=== PATIENT | female | born 1950 | race Caucasian/White ===

== ENCOUNTER 2017-03-02 09:25 | Inpatient (IN) | payer MEDICARE, BC ==
--- NOTE | ~2017-03-02 | DS ---
Discharge Summary [facility] [address] [place]. [address] NAME: JOSEPH CHO : 46 STATUS : DIS IN PAT#: [id number] AGE: 66 ADM/REG DATE : 03/02/17 MR#: [id number] REPORT SERV DATE: 03/13/17 DICTATED BY: MAXX CASTANON DATE: 03/12/17 REPORT STATUS : Draft TRANSCRIBED BY: MODL DATE: 03/12/17 ADMISSION DATE: 03/02/2017 DISCHARGE DATE: 03/12/2017 PRINCIPAL DIAGNOSES: Acute right-sided pneumonia with pleural effusion and acute hypoxemic respiratory failure. SECONDARY DIAGNOSES: History of breast cancer, chronic pain disorder with opioid use. HISTORY OF PRESENT ILLNESS: Please see Dr. Cuevas's dictation on 03/02/20170. HOSPITAL COURSE: Please see Dr. Leong's dictation 03/06/2017. SUBSEQUENT HOSPITAL COURSE: The patient had progressive hypoxemia requiring admission to the [facility] on Vapotherm. She actually maxed out on Vapotherm, and consideration was made about intubation to enhance the possibility of CT imaging and/or bronchoscopy as she had seemed to have failed antibiotic therapy. The pleural effusion was also seen, and efforts were made to do a bedside thoracentesis for diagnosis, however, by day 7 of admission she began to have some diminishment of hypoxemia after perhaps a dose of diuretics and steroids had been instituted. The pleural effusion had gone away for the most part, and she actually began to improve greatly, and antibiotics were discontinued. In between day 7 and day 10 of hospitalization, the patient went from maximum Vapotherm to no oxygen whatsoever. She finished her antibiotics, was given a tapering course of steroids, and she will be following up with Haylie Torres in 1-[address] Suarez in 2 to 4 weeks for the possibility of later imaging and rule out metastatic breast cancer although it should be noted that followup x-rays were negative, and we were not concerned about lymphangitic spread of malignancy at this time. PENNIE/JOSIANE Maxx Castanon M.D. / [id number] CC: Tuan Suarez MD Hisham F. Qutob, MD
--- NOTE | ~2017-03-02 | CN ---
Consultation Report [facility] [address] [place]. [address] NAME: JOSEPH CHO : 48 STATUS : ADM IN PAT#: [id number] AGE: 66 ADM/REG DATE : 03/02/17 MR#: [id number] REPORT SERV DATE: 03/06/17 DICTATED BY: CEDRICK ROBERTO DATE: 03/06/17 REPORT STATUS : Draft TRANSCRIBED BY: MODL DATE: 03/06/17 DATE OF CONSULTATION: 03/06/2017 CHIEF COMPLAINT: Shortness of breath and hypoxemia in a patient with right-sided pneumonia. HISTORY OF PRESENT ILLNESS: Ms. Joseph Cho is a pleasant 66-year-old white female with a past medical history significant for COPD, gastroesophageal reflux disease, and left breast cancer status post resection and chemotherapy, who presents to [facility] with complaints of worsening shortness of breath. It should be noted that Ms. Cho has not been hospitalized recently and has done fairly well as an outpatient. Ms. Cho is not currently followed by a race car driver. She does not require supplemental oxygen. She does take albuterol infrequently. She states that she quit smoking in 1992. Prior to that time, she smoked approximately two packs a day for a period of 30 years. She states that for the last two months, she becomes short of breath, just ambulating around her home. The patient states that she has had some degree of dyspnea over the last few months, which she has attributed to her past smoking history. Approximately seven days ago, she had an episode when she was trying to take some medications and she felt that the pill "got stuck" in her esophagus. She does have a history of dysphagia and esophageal dilatations in the past. She did eventually experience some resolution to the discomfort caused by taking this medication. She does not remember any specific episode of reflux or aspiration afterwards. That being said soon after, she began to experience chills without fever. She began to experience generalized malaise. She did develop some cough and had one or two episodes of scant hemoptysis. The patient states she was actually scheduled to be seen by her primary care physician, but felt so poorly that she asked her to call EMS. She was noted in transit to have an oxygenation of 64% on room air. She was placed on supplemental oxygen with improvement to 96%. When she arrived in the [facility] Emergency Room, she had a systolic blood pressure of 108. She was afebrile. Initial blood work revealed a white blood cell count of 3300. Her BNP was noted to be 138.8. She had an arterial blood gas, which revealed a pH of 7.39 and a PaO2 of 57. A chest x-ray was obtained, which suggests probable pneumonia. Given the degree of her hypoxemia, she did eventually undergo a CTA of the chest, which did not demonstrate pulmonary embolism. That being said, significant infiltrate in the right upper, middle, and lower lobe was demonstrated. Of note, a lucent lesion involving the T11 pedicle and posterior vertebral body on the left measuring 12 x 27 mm was noted. The patient was placed on Rocephin and azithromycin. This was later changed to Zosyn due to the concern of aspiration. She did undergo a bedside swallow eval, which did not demonstrate signs consistent with clear aspiration. Since this time, she has had increasing oxygen requirements, currently now on 12 L. For the aforementioned reason, she has been referred to the Pulmonary Service for further assessment. Currently, Ms. Cho's main pulmonary complaint is shortness of breath. This is worse on exertion and relieved by rest. She is not producing any purulent sputum. She denies any wheezing in her chest. She denies previous pneumonias or aspiration events. She denies any Consultation Report [address] [address] NAME: JOSEPH CHO : 46 STATUS : ADM IN [facility]#: [id number] AGE: 66 ADM/REG DATE : 03/02/17 MR#: [id number] REPORT SERV DATE: 03/06/17 DICTATED BY: CEDRICK ROBERTO DATE: 03/06/17 REPORT STATUS : Draft TRANSCRIBED BY: MODNeri DATE: 03/06/17 recent sick contacts. She has been told in the past that she likely has COPD. 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 She does have known hypertension. She currently denies any murmurs, angina, or palpitations. In regard to constitutional symptoms, she has had no fever or chills. She has had no nausea or vomiting. She has no chest pain today. She denies any abdominal pain or edema. She does confirm previous episodes of orthopnea and dependent edema. PAST MEDICAL HISTORY: 1. Asthma. 2. Left breast cancer status post surgery and chemotherapy. 3. COPD. 4. Hypertension. 5. Gastroesophageal reflux disease. 6. Chronic lower back pain. 7. Ulcerative colitis, previously on immunosuppressant. 8. Urinary incontinence. PAST SURGICAL HISTORY: 1. Hysterectomy. 2. Cervical fusion. 3. Lumbar spine surgeries x2. 4. Incisional hernia repair. 5. Placement of a lumbar spinal stimulator. FAMILY HISTORY: The patient states that her father of COPD. She has four siblings, all with obstructive airway disease. SOCIAL HISTORY: The patient is with her currently at bedside. She has three biologic children who are in good health. She previously worked in food services. 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 TOBACCO/ALCOHOL: As previously mentioned, the patient quit smoking in 1992. Prior to that time, she smoked approximately two packs a day for a period of 30 years. She denies any recent alcohol or illicit drug use. MEDICATIONS: 1. Albuterol. 2. Amlodipine 5 mg. 3. Celebrex 200 mg. 4. Cetirizine 10 mg. 5. Cyclobenzaprine 10 mg. 6. Donepezil 10 mg. Consultation Report [address] [place]. [address] NAME: JOSEPH CHO : 46 STATUS : ADM IN [facility]#: [id number] AGE: 66 ADM/REG DATE : 03/02/17 MR#: [id number] REPORT SERV DATE: 03/06/17 DICTATED BY: CEDRICK ROBERTO DATE: 03/06/17 REPORT STATUS : Draft TRANSCRIBED BY: JOSIANE DATE: 03/06/17 7. Esomeprazole 40 mg. 8. Gabapentin 600 mg. 9. Lopressor 25 mg. 10.Oxybutynin 15 mg. 11.Oxycodone 5 mg. 12.Trazodone 5 mg. ALLERGIES: THE PATIENT HAS A KNOWN ALLERGY TO MORPHINE, ITRACONAZOLE, AND HYDROMORPHONE. REVIEW OF SYSTEMS: A complete review of systems was performed with pertinent positives and negatives contained within the body of the HPI. PHYSICAL EXAMINATION: VITAL SIGNS: Blood pressure is 149/88, heart rate 72, T-max is 98.3, respiratory rate is 18, and SpO2 is 95% on 12 L nasal cannula. GENERAL: The patient is a pleasant, well-nourished/well-developed female who is not currently exhibiting any signs of acute distress. Skin: Skin with appropriate texture and turgor. No rashes, lesions, or ulcers. Nails are clear without cyanosis or clubbing. HEENT: Head: Skull is normocephalic/atraumatic. Facies symmetric. No masses or lesions. Eyes: Sclera anicteric, conjunctiva pink without exudates. Extra ocular movements intact. Pupils are equal, round, reactive to light. Ears: Auricles and tragus without pain to palpation. Hearing is grossly intact. Nose: Bilateral nasal patency. Sinuses without tenderness upon palpation. Throat: Dentition. Lips, oral mucosa, tongue, palate, and pharynx pink and moist without lesions. Uvula rises equally on phonation. Tongue midline without deviation. NECK: Neck supple. Trachea midline. No cervical lymphadenopathy appreciated. THORAX/LUNGS: Very diminished breath sounds in the lower lung sawyer with a few inspiratory crackles. CARDIOVASCULAR: Regular rate and rhythm. No murmurs, rubs, or gallops. Anterior chest without thrills, heaves, or lifts. ABDOMEN: Soft. Non-distended, non-tender. Active bowel sounds in all four quadrants. No hepatosplenomegaly noted. PERIPHERAL VASCULAR: No edema. No varicosities, stasis changes, open sores, ulcerations, or phlebitis. 2+ pulses in radial and dorsalis pedis. MUSCULOSKELETAL: Full AROM and PROM in all joints. No evidence of erythema, deformity, or crepitus. NEUROLOGIC: CN II - XII grossly intact. Good muscle bulk and tone bilaterally. Strength 5/5 throughout. PSYCHIATRIC: Patient demonstrates good judgment and insight. Pt is A&O x 3. ACCESSORY DATA: Reveals a creatinine of 0.6, mag is 1.9. Arterial blood gas on 50% FiO2 reveals a pH of 7.45, PaCO2 of 39, PaO2 of 50, and a bicarb of 26.6. White blood cell count is 4800. Hemoglobin and hematocrit are 10.5 and 32.4. Blood cultures have no growth to Consultation Report [address] [place]. [address] NAME: JOSEPH CHO MISTY : 48 STATUS : ADM IN PAT#: [id number] AGE: 66 ADM/REG DATE : 03/02/17 MR#: [id number] REPORT SERV DATE: 03/06/17 DICTATED BY: CEDRICK ROBERTO DATE: 03/06/17 REPORT STATUS : Draft TRANSCRIBED BY: JOSIANE DATE: 03/06/17 date. Sputum is growing yeast. CTA of the chest reveals no PE. There are signs consistent with right-sided pneumonia. There is a moderate hiatal hernia as well as a lesion noted on T11. Echocardiogram is pending. IMPRESSION: 1. Acute hypoxemic respiratory failure. 2. Increasing right-sided pulmonary infiltrate suggestive of pneumonia. 3. Bilateral pleural effusions. 4. Chronic obstructive pulmonary disease. 5. History of breast cancer status post resection and chemo. 6. T11 lesion. 7. Dysphagia. 8. Gastroesophageal reflux disease. 9. Ulcerative colitis, previously on immunotherapy. PLAN: 1. At this time, we will write for Vapotherm should her oxygenation status worsen. We will check a BNP to surveil for volume overload. We will also perform a bedside ultrasound to assess the size of her pleural effusions. 2. In regard to the patient's probable pneumonia, we will check a procalcitonin to help guide further antibiotic therapy. Unfortunately, she is not clinically stable enough to pursue bronchoscopy for more definitive culture information. It may be reasonable to transiently increase her antibiotic coverage. We will likely add vancomycin to her regimen. 3. In regard to the patient's bilateral pleural effusions, again we will check a BNP as well as follow her echocardiogram with further recommendations. She may possibly benefit for diagnostic and therapeutic thoracentesis. 4. In regard to the patient's COPD, we will place her on a full armamentarium of nebulized medications. The aforementioned impression and plan have been discussed with Dr. Suarez, who will follow further recommendations. We thank you for this consult and look forward to participating in the care of . Joseph Cho. GBS/MODL Cedrick Roberto PA-C / [id number] Consultation Report [address] [place]. [address] NAME: JOSEPH CHO : 46 STATUS : ADM IN PAT#: [id number] AGE: 66 ADM/REG DATE : 03/02/17 MR#: [id number] REPORT SERV DATE: 03/06/17 DICTATED BY: CEDRICK ROBERTO DATE: 03/06/17 REPORT STATUS : Draft TRANSCRIBED BY: MODL DATE: 03/06/17 CC: Praveen Leong MD
--- NOTE | ~2017-03-02 | IDS ---
Interim Discharge Summary [facility] [address] [place]. [address] NAME: JOSEPH CHO : 46 STATUS : ADM IN [facility]#: [id number] AGE: 66 ADM/REG DATE : 03/02/17 MR#: [id number] REPORT SERV DATE: 03/07/17 DICTATED BY: PRAVEEN HAYS DATE: 03/06/17 REPORT STATUS : Draft TRANSCRIBED BY: MODNeri DATE: 03/06/17 ADMISSION DATE: 03/02/2017 DISCHARGE DATE: Date of discharge is pending. CONSULTATION: Pulmonology. REASON FOR CONSULTATION: Worsening pulmonary consolidation and infiltrate on repeat chest x- ray and worsening hypoxemia. RECOMMENDATIONS: By Pulmonary; the patient transferred to [facility] on 03/06/2017. The patient to have a repeat CT scan of the chest as well as repeat ultrasound for possible thoracentesis. CURRENT DIAGNOSES: 1. Right-sided pneumonia. 2. Acute hypoxic respiratory failure. 3. Bilateral pleural effusion. 4. Mild cognitive disorder. 5. Chronic pain syndrome. 6. Chronic back pain. 7. History of chronic neck pain. 8. History of cervical spine surgery. 9. History of chronic obstructive pulmonary disease/emphysema. 10.History of breast cancer. 11.Current condition stable. HISTORY OF PRESENT ILLNESS: For detailed HPI, please make reference to Dr. Tl Cuevas dictation on 03/02/2017. In brief, this is a 66-year-old female with medical history of COPD/emphysema, who presented to the hospital after an episode of aspiration of a pill three days prior to presentation. The patient reported that she developed worsening cough with production of hemoptysis. On arrival in the ER, the patient was found to have severe hypoxemia, PaO2 in the 50s, was placed on 10 L, PaO2 of 7. The patient was started on high flow oxygen at about 10 L. A chest x-ray was done that shows dense consolidation in the right lung. The patient's white blood cell count on initial presentation was noted to be 3300, however, repeat shows the patient's WBC shown to be 3300. Given patient's constellation of symptoms, a diagnosis of acute hypoxic respiratory failure secondary to right-sided pneumonia was made. The patient was admitted to the Hospitalist Service. HOSPITAL COURSE: Acute respiratory failure secondary to right-sided pneumonia. The patient's WBC trended up from 3300 to 14,000. The patient's initial IV antibiotics with ceftriaxone and azithromycin were switched to IV Zosyn. The patient's white blood cell currently trended up from 14,000 to 17,000. However, the patient continued to have Interim Discharge Summary [place] [address] [place]. [address] NAME: JOSEPH CHO : 46 STATUS : ADM IN [facility]#: [id number] AGE: 66 ADM/REG DATE : 03/02/17 MR#: [id number] REPORT SERV DATE: 03/07/17 DICTATED BY: PRAVEEN HAYS DATE: 03/06/17 REPORT STATUS : Draft TRANSCRIBED BY: JOSIANE DATE: 03/06/17 worsening hypoxemia and continued to have worsening cough. The sputum culture was obtained which grew normal brittny including yeast. The patient's repeat chest x-ray shows worsen consolidation, worsening right pleural effusion. Pulmonology was consulted. Recommended patient to be transferred to the [facility] and have a possible thoracentesis as well as a possible repeat CT scan. The patient is currently stable in [facility], on Vapotherm. The patient will likely have an ultrasound-guided thoracentesis if okay with Pulmonology. RAADO/JOSIANE Praveen Hays MD / [id number] CC: Praveen Hays MD
--- NOTE | ~2017-03-02 | HP ---
History And Physical [place] [id number] [facility] [place] [place]. [address] NAME: JOSEPH CHO : 46 STATUS : ADM IN [facility]#: [id number] AGE: 66 ADM/REG DATE : 03/02/17 MR#: [id number] REPORT SERV DATE: 03/02/17 DICTATED BY: NINA MACIAS DATE: 03/02/17 REPORT STATUS : Draft TRANSCRIBED BY: MODL DATE: 03/02/17 DATE OF ADMISSION: 03/02/2017 ATTENDING PHYSICIAN: Dr. Manzano. REASON FOR ADMISSION: Pneumonia right side and hypoxemia. HISTORY OF PRESENT ILLNESS: This is a 66-year-old white female, who has had some dyspnea on exertion for several months. She has been coughing this morning, slight amount of mucus but mostly blood. She has had fever and chills this morning and chest x-ray showed evidence of right-sided pneumonia. CT scan of the chest confirms this without evidence of pulmonary embolism. She thought she may be having some COPD as she has been having some hypoxemia and this has been checked out at home but she is not on any oxygen. She sees Dr. Haylie Torres, who treats her high blood pressure. PAST MEDICAL HISTORY: She does have a history of breast cancer about 10 years ago, was treated by Dr. Susana Martinez with an abbreviated dose of chemotherapy. She has had some senile dementia since that time but does not believe it is Alzheimer's disease. She does have chronic pain from low back pain. She is followed by Dr. Cuate Santos and is on the following medications: Albuterol two puffs q.i.d.; amlodipine 5 mg p.o. daily; vitamin B tablets 1 a day; biotin for hard nails; Celebrex 200 mg p.o. q.a.m.; Zyrtec 10 mg p.o. daily; vitamin D3 a 1000 units p.o. daily; Flexeril 10 mg p.o. t.i.d.; diclofenac gel 1 applicator 3 times a day p.r.n.; Aricept 10 mg at bedtime; Nexium 40 mg p.o. daily; gabapentin 600 mg p.o. q.a.m. and 1200 mg at bedtime; Linzess 145 mcg p.o. daily; magnesium chloride 535 mg p.o. 2 every morning; Mag Delay; metoprolol 25 mg 1 p.o. b.i.d.; vitamin with minerals; Mycolog 1 application 4 times a day for facial rash as needed; Ditropan XL 15 mg p.o. daily; Roxicodone 10 mg p.o. three times a day as needed; trazodone 50 mg p.o. at bedtime; vitamin C 1 every morning; Nizoral shampoo as needed for scalp dandruff; and Effexor XR 150 mg p.o. daily. ALLERGIES: HER ALLERGIES INCLUDE THE FOLLOWING: MORPHINE; SPORANOX; DILAUDID; AND PERCOCET WHICH CAUSES ITCHING THOUGH SHE IS ON THE ROXICODONE, THEREFORE I DOUBT THIS IS A PROBLEM. SOCIAL HISTORY: She is . Lives with her . She grew up in [place], [place] and moved to [place], [place] to raise her children. She does not smoke or drink. She attends the [employer]. FAMILY HISTORY: Her father at age 56 of COPD. Mother at age 80 after a hip fracture. She had 4 brothers and 4 sisters, all of whom are . She is the baby of the family. REVIEW OF SYSTEMS: History And Physical [address] [address] NAME: JOSEPH CHO : 46 STATUS : ADM IN [facility]#: [id number] AGE: 66 ADM/REG DATE : 03/02/17 MR#: [id number] REPORT SERV DATE: 03/02/17 DICTATED BY: NINA MACIAS DATE: 03/02/17 REPORT STATUS : Draft TRANSCRIBED BY: MODNeri DATE: 03/02/17 She has told she had some emphysema in the emergency room at [facility] in the past. She has had some hypoxemia off and on. She has had no chest pain. No fever. No swelling of the lower extremities. She does have an irregular heartbeat and she sees Dr. Rip Ospina for this. She had a breast cancer, chemotherapy, no evidence of disease in about 10 to 15 years. She has had no abdominal pain. No melena, hematemesis, fits, seizures, or convulsions. She does have urinary incontinence. She is gaining weight. The remainder of the review of systems is negative. PHYSICAL EXAMINATION: GENERAL: White female, moderately obese, in no acute distress. VITAL SIGNS: Her blood pressure was 100/60 with a heart rate of 70, her respiratory rate was 25, afebrile. HEENT: EOMI. Sclerae clear. Conjunctivae pink. NECK: No bruit without any JVD. CHEST: Rales on the right side anterior and laterally. Chest wall shows old Port-A-Cath scar on the right side. HEART: Regular S1, S2 without any murmur, gallop, or click. BREASTS: On the left side has a prosthesis. ABDOMEN: Soft, obese, nontender. Bowel sounds positive. No HSM. EXTREMITIES: Have no edema. Distal pulses are intact at the dorsalis pedis and posterior tibial. NEUROLOGIC: She withdraws to plantar stimulation. Graphics Specialist is equal and symmetric bilaterally. Coordination intact. She has no tremor. She is symmetrically equal neurologically bilaterally. LYMPHATICS: There is no adenopathy palpable. LABORATORY DATA: 1. Arterial blood gas, 7.39, 37, and 57, was drawn on 40% FiO2. The sodium is 141, potassium 4.2, creatinine 1.4, 1.15; BUN 25. Her glucose was 100. The albumin is 3.3. Liver tests are normal. Troponin less than 0.04. The BNP was 138. CTA of the chest showed right-sided pneumonia. Diffuse mixed density throughout the right upper lobe and lower lobe and middle lobe. 2. She has a moderate hiatal hernia and a lucent lesion 12 x 27 mm at T11 which is well- circumscribed, this could be a metastatic lesion though could be a benign bone cyst as well. 3. Portable chest x-ray shows dense consolidation in the right lung. The PT showed an INR of 1.1 with a PTT of 27, and her CBC showed a white count of 3.3000, hemoglobin 13.6, hematocrit 42.4, and platelets were 223,000. ASSESSMENT: 1. Right-sided pneumonia, right upper lobe, right lower lobe. 2. Hypoxemia with oxygen. We will try to maintain 90% with 5 L that she is on at this time. 3. Dementia of the Alzheimer's type on Aricept though this may have occurred after the History And Physical [address] [place]. 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 4. Hypertension on multiple medications, now with hypotension. 5. Possible COPD told by the emergency room though I suspect overlooking a hyperlucent lung on the x-ray. 6. Chronic pain followed by Dr. Cuate Santos. 7. Low back pain. 8. History of breast cancer, followed by Dr. Susana Martinez with Port-A-Cath being removed from the right chest. 9. History of hypertension. 10.Staggering recently and falling on multiple occasions according to the with evidence of postural hypotension. She did have significant postural hypotension during chemotherapy for her breast cancer. 11.12 x 27 mm lesion in the T11 area, benign versus metastatic. Consider followup x-rays. PLAN: We will start Rocephin and Zithromax for community-acquired pneumonia. Continued supplemental oxygen, aerosol treatments. Her baseline oxygen level is questionable, and we will need to consider supplemental oxygen at home. DB/JOSIANE Nina Macias M.D. / [id number] CC: MD Haylie Campoverde II, MD Sylvia Krueger, M.D. Calvin Bell, M.D. John Everett Blake III, M.D.
[~2017-03-02 09:25] MED LIST: ADVAIR250 INH; AMITIZA8 MCG PO; ASACOL PO; CELEBREX2 PO; CELEXA20 PO; DETROLLA4 PO; DIL4TAB PO; FEMARA PO; FEMARA2.5 MG OR; HYDROCHLOROT25 MG PO; LORTAB10 PO; LUNESTA3 MG PO; METHOC750B PO; NEUR800 PO; NEXIUM40 PO; PROCTO PAK EX; VOLTAREN1 % TOP
[2017-03-02 10:02] LABS: BASOPHILS 0 %; EOSINOPHILS 0 %; HEMATOCRIT 42.4 % (36.0-48.0); HEMOGLOBIN 13.8 g/dL (12.0-16.0); LYMPHOCYTES 10.4 %; LYMPHOCYTES ABSOLUTE 0.34 10/3/uL (0.67-4.30); MEAN CORPUS HGB CONC 32.5 g/dL (32.0-36.0); MEAN CORPUSCULAR VOLUME 92.2 fL (80-100); MEAN PLATELET VOLUME 10.4 fL (9.2-13.0); NEUTROPHILS 86.6 %; NEUTROPHILS ABSOLUTE 2.84 10/3/uL (2.02-8.40); PLATELET COUNT 223 10/3/uL (150-400); RBC DISTRIBUTION WIDTH 13.4 % (12.0-16.0)
[2017-03-02 10:09] LABS: ER CBC TAT 0 Hrs 11 Mins; MANUAL DIFF NO %; WHITE BLOOD CELLS 3.3 10/3/uL (4.5-10.5)
[2017-03-02 10:10] LABS: INTERNATIONAL NORMAL RATI 1.1 UNITS (-); PARTIAL THROMBO TIME 27.8 SEC (22.5-37.2); PROTIME (NOT ORD) 14.4 SEC (12.0-14.5)
[2017-03-02 10:16] LABS: ALLENS TEST Pos; BE (BASE EXCESS) -1.9 MEQ/L (0 +/- 2.5); CARBOXYHEMOGLOBIN 1.6 % (0-3); DEVICE NC; HCO3 (ACTUAL BICARBONATE) 22.7 MEQ/L (23-27); HEMOBLOGIN CONTENT 13.8 G/DL (12-16); INSTRUMENT SERIAL # 8087; METHEMOGLOBIN 0.3 % (0-3); O2 CONTENT 16.9 VOL% (18-24); PCO2 (CO2 TENSION) 39 MMHG (35-45); PO2 (O2 TENSION) 57 MMHG (79-93); SAMPLE Arterial; pH 7.39 (7.37-7.43)
[2017-03-02 10:19] LABS: ALBUMIN 3.3 G/DL (3.5-5.0); ALKALINE PHOSPHATASE 92 U/L (45-117); CALCIUM, SERUM 8.7 MG/DL (8.5-10.4); CHLORIDE, SERUM 107 MMOL/L (96-112); CO2 (CARBON DIOXIDE) 28 MMOL/L (24-34); CREATININE 1.15 MG/DL (0.55-1.02); GFR AFRICAN AMERICAN 57 ML/MIN (>=60); GFR NON AFRICAN AMERICAN 49 ML/MIN (>=60); GLOBULIN 3.3 G/DL (2.5-4.1); GLUCOSE, SERUM 100 MG/DL (60-99); POTASSIUM, SERUM 4.2 MMOL/L (3.5-5.3); SGOT(AST) 9 U/L (5-40); SGPT(ALT) 22 U/L (5-65); SODIUM, SERUM 141 MMOL/L (135-148); TOTAL BILIRUBIN 0.7 MG/DL (0-1.2); TOTAL PROTEIN 6.6 G/DL (6.0-8.5); TROPONIN I 0.04 NG/ML (<0.05)
[2017-03-02 10:20] LABS: BUN (BLOOD UREA NITROGEN) 25 MG/DL (6-23)
[2017-03-02] MEDS ORDERED: VITAMIN C PO (11:12)
[2017-03-02] MEDS ORDERED: VITAMIN D31000 UNIT PO (11:12)
[2017-03-02] MEDS ORDERED: VITAMIN B PO (11:13)
[2017-03-02] MEDS ORDERED: MULTIVIT/MIN PO (11:13)
[2017-03-02] MEDS ORDERED: NEUR600 PO ×2 (11:13→11:14)
[2017-03-02] MEDS ORDERED: LOP25 PO (11:14)
[2017-03-02] MEDS ORDERED: NEXIUM40 PO (11:14)
[2017-03-02] MEDS ORDERED: FLEX PO (11:15)
[2017-03-02] MEDS ORDERED: EFFEXOR XR150 MG PO (11:15)
[2017-03-02] MEDS ORDERED: ARICEPT10 PO (11:15)
[2017-03-02] MEDS ORDERED: CELEBREX2 PO (11:15)
[2017-03-02] MEDS ORDERED: TRAZ50 PO (11:16)
[2017-03-02] MEDS ORDERED: DITRO5 PO (11:16)
[2017-03-02] MEDS ORDERED: OXYCOD PO (11:17)
[2017-03-02] MEDS ORDERED: NORV5 PO (11:17)
[2017-03-02] MEDS ORDERED: MYCOLOG II CREA15 GM TOP (11:19)
[2017-03-02] MEDS ORDERED: ZYRTEC ALLGY10 MG PO (11:21)
[2017-03-02] MEDS ORDERED: VOLTAREN1 % TOP (11:24)
[2017-03-02] MEDS ORDERED: PROAIRRESP INH (11:24)
[2017-03-02] MEDS ORDERED: MAG-DELAY PO (11:25)
[2017-03-02] MEDS ORDERED: HARD NAILS PO (11:25)
[2017-03-02] MEDS ORDERED: LINZESS 145 M145 MCG PO (11:34)
[2017-03-02] MEDS ORDERED: NIZORAL SHAMPOO TOP (11:35)
[2017-03-02 19:46] LABS: INFLUENZA A SCREEN NEGATIVE (NEGATIVE); INFLUENZA B SCREEN NEGATIVE (NEGATIVE)
[2017-03-03 05:42] LABS: BASOPHILS 0.1 %; BASOPHILS ABSOLUTE 0.01 10/3/uL (0.0-0.16); EOSINOPHILS 0 %; HEMOGLOBIN 11.2 g/dL (12.0-16.0); IMMATURE GRANULOCYTES ABSOLUTE 0.28 10/3/uL (0.0-0.11); LYMPHOCYTES 4.1 %; LYMPHOCYTES ABSOLUTE 0.58 10/3/uL (0.67-4.30); MEAN CORPUS HGB CONC 32.7 g/dL (32.0-36.0); MEAN CORPUSCULAR HEMOGLOB 29.9 pg (26.0-34.0); MEAN CORPUSCULAR VOLUME 91.7 fL (80-100); MEAN PLATELET VOLUME 10.7 fL (9.2-13.0); MONOCYTES 4.1 %; MONOCYTES ABSOLUTE 0.58 10/3/uL (0.21-1.20); NEUTROPHILS 89.7 %; NEUTROPHILS ABSOLUTE 12.63 10/3/uL (2.02-8.40); PLATELET COUNT 166 10/3/uL (150-400); RBC DISTRIBUTION WIDTH 13.2 % (12.0-16.0); RED CELL COUNT 3.74 10/6/uL (4.0-5.6)
[2017-03-03 05:43] LABS: HEMATOCRIT 34.3 % (36.0-48.0); MANUAL DIFF NO %; WHITE BLOOD CELLS 14.1 10/3/uL (4.5-10.5)
[2017-03-03 05:59] LABS: CHLORIDE, SERUM 106 MMOL/L (96-112); CO2 (CARBON DIOXIDE) 25 MMOL/L (24-34); CREATININE 0.88 MG/DL (0.55-1.02); GFR AFRICAN AMERICAN 78 ML/MIN (>=60); GFR NON AFRICAN AMERICAN 68 ML/MIN (>=60); PHOSPHORUS, SERUM 2.2 MG/DL (2.5-4.5); SODIUM, SERUM 139 MMOL/L (135-148)
[2017-03-03 06:00] LABS: BUN (BLOOD UREA NITROGEN) 20 MG/DL (6-23); GLUCOSE, SERUM 178 MG/DL (60-99)
[2017-03-03 13:30] LABS: BE (BASE EXCESS) -0.2 MEQ/L (0 +/- 2.5); CARBOXYHEMOGLOBIN 0.3 % (0-3); HCO3 (ACTUAL BICARBONATE) 24.4 MEQ/L (23-27); HEMOBLOGIN CONTENT 11.6 G/DL (12-16); INSTRUMENT SERIAL # 35151; METHEMOGLOBIN 0.6 % (0-3); O2 CONTENT 15.5 VOL% (18-24); OPERATOR ID 35798; PCO2 (CO2 TENSION) 40 MMHG (35-45); PO2 (O2 TENSION) 77 MMHG (79-93); SAMPLE Arterial; pH 7.41 (7.37-7.43)
[2017-03-03 13:31] LABS: ALLENS TEST Pos; DEVICE HFNC
[2017-03-04 06:26] LABS: BASOPHILS 0.1 %; BASOPHILS ABSOLUTE 0.01 10/3/uL (0.0-0.16); EOSINOPHILS 0.1 %; EOSINOPHILS ABSOLUTE 0.01 10/3/uL (0.0-0.53); HEMATOCRIT 31.2 % (36.0-48.0); IMMATURE GRANULOCYTES 0.8 %; LYMPHOCYTES 8.5 %; LYMPHOCYTES ABSOLUTE 1.06 10/3/uL (0.67-4.30); MEAN CORPUS HGB CONC 32.1 g/dL (32.0-36.0); MEAN CORPUSCULAR HEMOGLOB 29.8 pg (26.0-34.0); MEAN CORPUSCULAR VOLUME 92.9 fL (80-100); MEAN PLATELET VOLUME 10.9 fL (9.2-13.0); MONOCYTES 3.6 %; MONOCYTES ABSOLUTE 0.45 10/3/uL (0.21-1.20); NEUTROPHILS 86.9 %; PLATELET COUNT 167 10/3/uL (150-400); RBC DISTRIBUTION WIDTH 13.7 % (12.0-16.0); RED CELL COUNT 3.36 10/6/uL (4.0-5.6); WHITE BLOOD CELLS 12.5 10/3/uL (4.5-10.5)
[2017-03-04 06:29] LABS: MANUAL DIFF NO %
[2017-03-04 06:49] LABS: BUN (BLOOD UREA NITROGEN) 17 MG/DL (6-23); CHLORIDE, SERUM 104 MMOL/L (96-112); CO2 (CARBON DIOXIDE) 28 MMOL/L (24-34); CREATININE 0.85 MG/DL (0.55-1.02); GFR AFRICAN AMERICAN 82 ML/MIN (>=60); GFR NON AFRICAN AMERICAN 70 ML/MIN (>=60); GLUCOSE, SERUM 150 MG/DL (60-99); POTASSIUM, SERUM 4.7 MMOL/L (3.5-5.3); SODIUM, SERUM 139 MMOL/L (135-148)
[2017-03-04 06:50] LABS: ALBUMIN 2.5 G/DL (3.5-5.0); PHOSPHORUS, SERUM 1.5 MG/DL (2.5-4.5)
[2017-03-04 16:26] LABS: BASOPHILS 0.2 %; BASOPHILS ABSOLUTE 0.02 10/3/uL (0.0-0.16); EOSINOPHILS 0.8 %; HEMATOCRIT 33.4 % (36.0-48.0); HEMOGLOBIN 10.7 g/dL (12.0-16.0); IMMATURE GRANULOCYTES 0.9 %; IMMATURE GRANULOCYTES ABSOLUTE 0.12 10/3/uL (0.0-0.11); LYMPHOCYTES 9.7 %; LYMPHOCYTES ABSOLUTE 1.25 10/3/uL (0.67-4.30); MANUAL DIFF NO %; MEAN CORPUSCULAR VOLUME 93.6 fL (80-100); MEAN PLATELET VOLUME 10.7 fL (9.2-13.0); MONOCYTES 4.4 %; MONOCYTES ABSOLUTE 0.56 10/3/uL (0.21-1.20); NEUTROPHILS ABSOLUTE 10.78 10/3/uL (2.02-8.40); PLATELET COUNT 171 10/3/uL (150-400); RBC DISTRIBUTION WIDTH 13.6 % (12.0-16.0); RED CELL COUNT 3.57 10/6/uL (4.0-5.6); WHITE BLOOD CELLS 12.8 10/3/uL (4.5-10.5)
[2017-03-04 16:45] LABS: ALBUMIN 2.8 G/DL (3.5-5.0); BUN (BLOOD UREA NITROGEN) 14 MG/DL (6-23); CALCIUM, SERUM 8.8 MG/DL (8.5-10.4); CHLORIDE, SERUM 103 MMOL/L (96-112); CO2 (CARBON DIOXIDE) 26 MMOL/L (24-34); CREATININE 0.71 MG/DL (0.55-1.02); GFR AFRICAN AMERICAN 101 ML/MIN (>=60); GFR NON AFRICAN AMERICAN 88 ML/MIN (>=60); GLUCOSE, SERUM 124 MG/DL (60-99); PHOSPHORUS, SERUM 1.6 MG/DL (2.5-4.5); SODIUM, SERUM 139 MMOL/L (135-148)
[2017-03-04 16:48] LABS: POTASSIUM, SERUM 3.7 MMOL/L (3.5-5.3)
[2017-03-05 09:00] LABS: BASOPHILS 0.5 %; BASOPHILS ABSOLUTE 0.04 10/3/uL (0.0-0.16); EOSINOPHILS 2.6 %; HEMATOCRIT 34.9 % (36.0-48.0); HEMOGLOBIN 11.4 g/dL (12.0-16.0); IMMATURE GRANULOCYTES 0.3 %; IMMATURE GRANULOCYTES ABSOLUTE 0.02 10/3/uL (0.0-0.11); LYMPHOCYTES 14.7 %; LYMPHOCYTES ABSOLUTE 1.11 10/3/uL (0.67-4.30); MANUAL DIFF NO %; MEAN CORPUS HGB CONC 32.7 g/dL (32.0-36.0); MEAN CORPUSCULAR VOLUME 91.8 fL (80-100); MONOCYTES 5.3 %; NEUTROPHILS 76.6 %; NEUTROPHILS ABSOLUTE 5.79 10/3/uL (2.02-8.40); PLATELET COUNT 192 10/3/uL (150-400); RBC DISTRIBUTION WIDTH 13.6 % (12.0-16.0); WHITE BLOOD CELLS 7.6 10/3/uL (4.5-10.5)
[2017-03-06 06:18] LABS: BASOPHILS 0.6 %; BASOPHILS ABSOLUTE 0.03 10/3/uL (0.0-0.16); EOSINOPHILS 4.6 %; EOSINOPHILS ABSOLUTE 0.22 10/3/uL (0.0-0.53); HEMATOCRIT 32.4 % (36.0-48.0); HEMOGLOBIN 10.5 g/dL (12.0-16.0); IMMATURE GRANULOCYTES 0.4 %; IMMATURE GRANULOCYTES ABSOLUTE 0.02 10/3/uL (0.0-0.11); LYMPHOCYTES 26.6 %; LYMPHOCYTES ABSOLUTE 1.27 10/3/uL (0.67-4.30); MEAN CORPUS HGB CONC 32.4 g/dL (32.0-36.0); MEAN CORPUSCULAR HEMOGLOB 29.6 pg (26.0-34.0); MEAN CORPUSCULAR VOLUME 91.3 fL (80-100); MEAN PLATELET VOLUME 10.5 fL (9.2-13.0); MONOCYTES 9.4 %; MONOCYTES ABSOLUTE 0.45 10/3/uL (0.21-1.20); NEUTROPHILS 58.4 %; NEUTROPHILS ABSOLUTE 2.78 10/3/uL (2.02-8.40); PLATELET COUNT 201 10/3/uL (150-400); RBC DISTRIBUTION WIDTH 13.3 % (12.0-16.0); RED CELL COUNT 3.55 10/6/uL (4.0-5.6); WHITE BLOOD CELLS 4.8 10/3/uL (4.5-10.5)
[2017-03-06 06:20] LABS: MANUAL DIFF NO %
[2017-03-06 06:35] LABS: CALCIUM, SERUM 9.2 MG/DL (8.5-10.4); CHLORIDE, SERUM 104 MMOL/L (96-112); CO2 (CARBON DIOXIDE) 30 MMOL/L (24-34); GFR AFRICAN AMERICAN 109 ML/MIN (>=60); GFR NON AFRICAN AMERICAN 94 ML/MIN (>=60); POTASSIUM, SERUM 3.6 MMOL/L (3.5-5.3); SODIUM, SERUM 141 MMOL/L (135-148)
[2017-03-06 06:36] LABS: BUN (BLOOD UREA NITROGEN) 10 MG/DL (6-23); GLUCOSE, SERUM 89 MG/DL (60-99); PHOSPHORUS, SERUM 3.5 MG/DL (2.5-4.5)
[2017-03-06 10:21] LABS: BE (BASE EXCESS) 2.5 MEQ/L (0 +/- 2.5); CARBOXYHEMOGLOBIN 0.2 % (0-3); DEVICE HFNC; HCO3 (ACTUAL BICARBONATE) 26.6 MEQ/L (23-27); HEMOBLOGIN CONTENT 12.4 G/DL (12-16); INSTRUMENT SERIAL # 35151; METHEMOGLOBIN 0.6 % (0-3); O2 CONTENT 14.8 VOL% (18-24); PCO2 (CO2 TENSION) 39 MMHG (35-45); PO2 (O2 TENSION) 50 MMHG (79-93); SAMPLE Arterial; pH 7.45 (7.37-7.43)
[2017-03-06 16:31] LABS: PROCALCITONIN 2.44 ng/mL (<0.5)
[2017-03-07 04:40] LABS: BASOPHILS ABSOLUTE 0.05 10/3/uL (0.0-0.16); EOSINOPHILS 4.6 %; EOSINOPHILS ABSOLUTE 0.24 10/3/uL (0.0-0.53); HEMOGLOBIN 10.8 g/dL (12.0-16.0); IMMATURE GRANULOCYTES 0.4 %; IMMATURE GRANULOCYTES ABSOLUTE 0.02 10/3/uL (0.0-0.11); LYMPHOCYTES 31.4 %; LYMPHOCYTES ABSOLUTE 1.63 10/3/uL (0.67-4.30); MANUAL DIFF NO %; MEAN CORPUS HGB CONC 32.7 g/dL (32.0-36.0); MEAN CORPUSCULAR HEMOGLOB 29.8 pg (26.0-34.0); MEAN CORPUSCULAR VOLUME 91.2 fL (80-100); MEAN PLATELET VOLUME 10.4 fL (9.2-13.0); MONOCYTES 11.8 %; MONOCYTES ABSOLUTE 0.61 10/3/uL (0.21-1.20); NEUTROPHILS 50.8 %; NEUTROPHILS ABSOLUTE 2.64 10/3/uL (2.02-8.40); PLATELET COUNT 218 10/3/uL (150-400); RBC DISTRIBUTION WIDTH 13.3 % (12.0-16.0); RED CELL COUNT 3.62 10/6/uL (4.0-5.6); WHITE BLOOD CELLS 5.2 10/3/uL (4.5-10.5)
[2017-03-07 04:41] LABS: BUN (BLOOD UREA NITROGEN) 9 MG/DL (6-23); CALCIUM, SERUM 8.7 MG/DL (8.5-10.4); CHLORIDE, SERUM 107 MMOL/L (96-112); CO2 (CARBON DIOXIDE) 29 MMOL/L (24-34); CREATININE 0.59 MG/DL (0.55-1.02); GFR AFRICAN AMERICAN 109 ML/MIN (>=60); GFR NON AFRICAN AMERICAN 94 ML/MIN (>=60); PHOSPHORUS, SERUM 3.6 MG/DL (2.5-4.5); POTASSIUM, SERUM 3.9 MMOL/L (3.5-5.3); SODIUM, SERUM 144 MMOL/L (135-148)
[2017-03-07 04:42] LABS: ALBUMIN 2.2 G/DL (3.5-5.0); GLUCOSE, SERUM 108 MG/DL (60-99)
[2017-03-08 03:53] LABS: BASOPHILS ABSOLUTE 0.07 10/3/uL (0.0-0.16); EOSINOPHILS 4.2 %; EOSINOPHILS ABSOLUTE 0.28 10/3/uL (0.0-0.53); HEMATOCRIT 33.7 % (36.0-48.0); HEMOGLOBIN 11.2 g/dL (12.0-16.0); IMMATURE GRANULOCYTES 0.6 %; IMMATURE GRANULOCYTES ABSOLUTE 0.04 10/3/uL (0.0-0.11); LYMPHOCYTES 25.8 %; LYMPHOCYTES ABSOLUTE 1.73 10/3/uL (0.67-4.30); MEAN CORPUS HGB CONC 33.2 g/dL (32.0-36.0); MEAN CORPUSCULAR HEMOGLOB 29.9 pg (26.0-34.0); MEAN CORPUSCULAR VOLUME 90.1 fL (80-100); MONOCYTES 11.5 %; MONOCYTES ABSOLUTE 0.77 10/3/uL (0.21-1.20); NEUTROPHILS 56.9 %; NEUTROPHILS ABSOLUTE 3.82 10/3/uL (2.02-8.40); PLATELET COUNT 240 10/3/uL (150-400); RBC DISTRIBUTION WIDTH 13.2 % (12.0-16.0); RED CELL COUNT 3.74 10/6/uL (4.0-5.6); WHITE BLOOD CELLS 6.7 10/3/uL (4.5-10.5)
[2017-03-08 03:55] LABS: MANUAL DIFF NO %
[2017-03-08 04:07] LABS: BUN (BLOOD UREA NITROGEN) 8 MG/DL (6-23); CALCIUM, SERUM 8.8 MG/DL (8.5-10.4); CHLORIDE, SERUM 103 MMOL/L (96-112); CO2 (CARBON DIOXIDE) 29 MMOL/L (24-34); CREATININE 0.58 MG/DL (0.55-1.02); GFR AFRICAN AMERICAN 110 ML/MIN (>=60); GFR NON AFRICAN AMERICAN 95 ML/MIN (>=60); GLUCOSE, SERUM 104 MG/DL (60-99); PHOSPHORUS, SERUM 3.4 MG/DL (2.5-4.5); POTASSIUM, SERUM 3.7 MMOL/L (3.5-5.3); SODIUM, SERUM 138 MMOL/L (135-148)
[2017-03-09 05:27] LABS: BASOPHILS 0.3 %; BASOPHILS ABSOLUTE 0.02 10/3/uL (0.0-0.16); EOSINOPHILS 0 %; HEMATOCRIT 35.1 % (36.0-48.0); HEMOGLOBIN 11.5 g/dL (12.0-16.0); IMMATURE GRANULOCYTES 0.9 %; IMMATURE GRANULOCYTES ABSOLUTE 0.06 10/3/uL (0.0-0.11); LYMPHOCYTES 17.3 %; LYMPHOCYTES ABSOLUTE 1.12 10/3/uL (0.67-4.30); MEAN CORPUS HGB CONC 32.8 g/dL (32.0-36.0); MEAN CORPUSCULAR HEMOGLOB 29.4 pg (26.0-34.0); MEAN CORPUSCULAR VOLUME 89.8 fL (80-100); MEAN PLATELET VOLUME 10.3 fL (9.2-13.0); MONOCYTES 3.9 %; MONOCYTES ABSOLUTE 0.25 10/3/uL (0.21-1.20); NEUTROPHILS 77.6 %; NEUTROPHILS ABSOLUTE 5.04 10/3/uL (2.02-8.40); PLATELET COUNT 281 10/3/uL (150-400); RBC DISTRIBUTION WIDTH 13.1 % (12.0-16.0); RED CELL COUNT 3.91 10/6/uL (4.0-5.6); WHITE BLOOD CELLS 6.5 10/3/uL (4.5-10.5)
[2017-03-09 05:34] LABS: MANUAL DIFF NO %
[2017-03-09 05:35] LABS: CALCIUM, SERUM 9.6 MG/DL (8.5-10.4); CHLORIDE, SERUM 103 MMOL/L (96-112); CO2 (CARBON DIOXIDE) 28 MMOL/L (24-34); CREATININE 0.63 MG/DL (0.55-1.02); GFR AFRICAN AMERICAN 107 ML/MIN (>=60); GFR NON AFRICAN AMERICAN 92 ML/MIN (>=60); PHOSPHORUS, SERUM 3.1 MG/DL (2.5-4.5); SODIUM, SERUM 140 MMOL/L (135-148); VANCOMYCIN TROUGH 12.3 MCG/ML (10.0-20.0)
[2017-03-09 05:44] LABS: BUN (BLOOD UREA NITROGEN) 12 MG/DL (6-23); GLUCOSE, SERUM 143 MG/DL (60-99)
[2017-03-09 06:39] LABS: PROCALCITONIN 0.33 ng/mL (<0.5)
[2017-03-10 06:16] LABS: BASOPHILS 0.3 %; BASOPHILS ABSOLUTE 0.02 10/3/uL (0.0-0.16); EOSINOPHILS 0 %; HEMATOCRIT 33.9 % (36.0-48.0); HEMOGLOBIN 11.2 g/dL (12.0-16.0); IMMATURE GRANULOCYTES 0.4 %; IMMATURE GRANULOCYTES ABSOLUTE 0.03 10/3/uL (0.0-0.11); LYMPHOCYTES 19.5 %; LYMPHOCYTES ABSOLUTE 1.43 10/3/uL (0.67-4.30); MEAN CORPUSCULAR HEMOGLOB 30.1 pg (26.0-34.0); MEAN CORPUSCULAR VOLUME 91.1 fL (80-100); MEAN PLATELET VOLUME 10.1 fL (9.2-13.0); MONOCYTES 3.4 %; MONOCYTES ABSOLUTE 0.25 10/3/uL (0.21-1.20); NEUTROPHILS 76.4 %; NEUTROPHILS ABSOLUTE 5.61 10/3/uL (2.02-8.40); PLATELET COUNT 298 10/3/uL (150-400); RBC DISTRIBUTION WIDTH 13.2 % (12.0-16.0); RED CELL COUNT 3.72 10/6/uL (4.0-5.6); WHITE BLOOD CELLS 7.3 10/3/uL (4.5-10.5)
[2017-03-10 06:18] LABS: MANUAL DIFF NO %
[2017-03-10 06:31] LABS: BUN (BLOOD UREA NITROGEN) 17 MG/DL (6-23); CALCIUM, SERUM 9.1 MG/DL (8.5-10.4); CHLORIDE, SERUM 104 MMOL/L (96-112); CO2 (CARBON DIOXIDE) 26 MMOL/L (24-34); CREATININE 0.64 MG/DL (0.55-1.02); GFR AFRICAN AMERICAN 106 ML/MIN (>=60); GFR NON AFRICAN AMERICAN 92 ML/MIN (>=60); GLUCOSE, SERUM 131 MG/DL (60-99); PHOSPHORUS, SERUM 3.3 MG/DL (2.5-4.5); POTASSIUM, SERUM 4.2 MMOL/L (3.5-5.3); SODIUM, SERUM 137 MMOL/L (135-148)
[2017-03-11 06:29] LABS: BUN (BLOOD UREA NITROGEN) 21 MG/DL (6-23); CALCIUM, SERUM 9.7 MG/DL (8.5-10.4); CHLORIDE, SERUM 105 MMOL/L (96-112); CO2 (CARBON DIOXIDE) 29 MMOL/L (24-34); CREATININE 0.77 MG/DL (0.55-1.02); GFR AFRICAN AMERICAN 92 ML/MIN (>=60); GFR NON AFRICAN AMERICAN 79 ML/MIN (>=60); GLUCOSE, SERUM 88 MG/DL (60-99); PHOSPHORUS, SERUM 3.1 MG/DL (2.5-4.5); POTASSIUM, SERUM 3.6 MMOL/L (3.5-5.3); SODIUM, SERUM 142 MMOL/L (135-148)
[2017-03-12] MEDS ORDERED: MVI PO (14:30)
[2017-03-12] MEDS ORDERED: P10 (14:34)
== END 2017-03-12 16:50 | disposition home or self-care (01) | DRG 177 ==
LOC: ER 09:25 → 6NO 13:27 → IMCU 03-06 16:25 → 5SO 03-11 15:57
PROVIDERS: Emergency Medicine; Hospitalist; Internal Medicine; Nurse Practitioner Family; Physician Assistant Medical
PROC: 5A09357 Assistance with Respiratory Ventilation, Less than 24 Consecutive Hours, Continuous Positive Airway Pressure (ICD-10-PCS; principal; 2017-03-09)
DX: J69.0 Pneumonitis due to inhalation of food and vomit (principal); J96.01 Acute respiratory failure with hypoxia; J44.1 Chronic obstructive pulmonary disease with (acute) exacerbation; J90 Pleural effusion, not elsewhere classified; K51.90 Ulcerative colitis, unspecified, without complications; G30.1 Alzheimer's disease with late onset; R13.10 Dysphagia, unspecified; F02.80 Dementia in other diseases classified elsewhere, unspecified severity, without behavioral disturbance, psychotic disturbance, mood disturbance, and anxiety; G89.4 Chronic pain syndrome; K21.9 Gastro-esophageal reflux disease without esophagitis; I10 Essential (primary) hypertension; M54.5 Low back pain; K59.00 Constipation, unspecified; Z91.81 History of falling; Z85.3 Personal history of malignant neoplasm of breast; Z92.21 Personal history of antineoplastic chemotherapy; Z79.899 Other long term (current) drug therapy; Z88.5 Allergy status to narcotic agent; Z87.891 Personal history of nicotine dependence; Z90.710 Acquired absence of both cervix and uterus; Z98.890 Other specified postprocedural states; Z83.6 Family history of other diseases of the respiratory system; Z90.12 Acquired absence of left breast and nipple
CPT/HCPCS: 36569-52; 36600; 71010; 71020; 71275; 74230; 80048; 80053; 80069; 80202; 82805; 83735; 83880; 84100; 84145; 84484; 85025; 85610; 85652; 85730; 86140; 87040; 87070; 87205; 87449; 87641; 87804; 92611-GN; 93005; 94640; 94660; 96365; 96375; 97162-GP; 99285; A9270-GY; C8929; G8978-CK-GP; G8979-CI-GP; G8996-CJ-GN; G8997-CJ-GN; G8998-CJ-GN; J0456; J2543; J2930; J3370; J3475; Q9957; Q9967

== ENCOUNTER 2017-03-25 16:26 | Inpatient (IN) | payer MEDICARE, BC ==
--- NOTE | ~2017-03-25 | CN ---
Consultation Report [facility] [address] [place]. [address] NAME: JOSEPH CHO : 46 STATUS : ADM IN [facility]#: [id number] AGE: 66 ADM/REG DATE : 03/25/17 MR#: [id number] REPORT SERV DATE: 03/30/17 DICTATED BY: SOO WILKERSON DATE: 03/29/17 REPORT STATUS : Draft TRANSCRIBED BY: MODL DATE: 03/29/17 CONSULTATION DATE OF CONSULTATION: 03/29/2017 REASON FOR CONSULTATION: Dysphagia. HISTORY OF PRESENT ILLNESS: Ms. Joseph Kim is a pleasant 66-year-old lady with history of severe COPD, admitted with a second bout of pneumonia. Previously, she was admitted on 03/02/2017 with complaints of bilateral pneumonia, was in the ICU, was critical, had a 10- day stay for pneumonia, and was discharged on 03/13/2017. She was readmitted back on 03/25/2017, with complaints of having shortness of breath and cough. She was also found to have bilateral pneumonia. Now the pneumonia is better, but she complains of having some difficulty in swallowing. According to her, she had previously been evaluated for difficulty in swallowing and was found to have abdominal contractions of the lower esophagus. She had a swallow study done recently and was found to have some pooling of dye in the posterior part of the pharynx. She is eating her dinner and is able to eat potatoes and pieces of meat if she swallows them well. PAST MEDICAL HISTORY: Significant for COPD, admitted recently with pneumonia and discharged home. She also has a history of hypertension, bilateral pleural effusion, history of breast cancer status post radiation and treatment, history of bronchial asthma, mild dementia, history of GERD, constipation, and chronic pain syndrome, and chronic back pain with multiple back surgeries, history of depression, anxiety, and urinary incontinence. PAST SURGICAL HISTORY: Significant for hysterectomy, lumbar spine surgery, lumbar spinal canal stenosis, left mastectomy, bilateral foot surgery, and cervical spine surgery by Dr. Eden. ALLERGIES: MORPHINE AND DILAUDID. CURRENT MEDICATIONS: 1. Ascorbic acid 1000 mg p.o. daily. 2. Budesonide inhaler. 3. Cyanocobalamin 2500 mcg p.o. daily. 4. Cholecalciferol 2000 units p.o. daily. 5. Donepezil 20 mg p.o. at bedtime. 6. Lovenox 40 mg subcu at bedtime. 7. Famotidine 40 mg p.o. at bedtime. 8. Gabapentin 1200 mg p.o. at bedtime. 9. Gabapentin 600 mg p.o. daily. 10.Magnesium oxide 200 mg p.o. b.i.d. 11.Metoprolol 25 mg p.o. b.i.d. 12.Oxybutynin XL 15 mg p.o. b.i.d. 13.Pantoprazole 40 mg p.o. at bedtime. Consultation Report [facility] [address] [place]. [address] NAME: JOSEPH CHO : 46 STATUS : ADM IN [facility]#: [id number] AGE: 66 ADM/REG DATE : 03/25/17 MR#: [id number] REPORT SERV DATE: 03/30/17 DICTATED BY: SOO WILKERSON DATE: 03/29/17 REPORT STATUS : Draft TRANSCRIBED BY: JOSIANE DATE: 03/29/17 14.Piperacillin 3.37 g IV q.8 hours. 15.Trazodone 100 mg at bedtime. 16.Vancomycin 500 mg IV q.12 hours. 17.Prednisone 20 mg p.o. at bedtime. SOCIAL HISTORY: Does not smoke any cigarettes. Does not take any alcohol. She lives at home with her family. REVIEW OF SYSTEMS: Except for the shortness of breath and slight difficulty in swallowing, the patient does not have any symptoms. PHYSICAL EXAMINATION: VITAL SIGNS: Temperature is normal. NECK: Supple. Trachea is central. Carotids are well felt on both sides. CARDIOVASCULAR SYSTEM: S1 and S2 are heard. There is no S3. ABDOMEN: Soft. Bowel sounds are heard. Hernial orifices are normal. REGISTERED NURSE: Higher function, cranial nerves, and reflexes are normal. LABORATORY DATA: Showed a BUN, creatinine, electrolytes to be normal. WBC count is 8.7, hemoglobin is 11, hematocrit is 33.9, platelet count is 199. INR is 1. CPK and troponin levels are normal. CMP is normal. The barium swallow shows some pulling of dye in the posterior part of the pharynx. There was no evidence of any aspiration. IMPRESSION: 1. Dysphagia probably secondary to esophageal dyskinesia and probably excessive use of gabapentin. 2. Pneumonia. 3. Dementia. 4. Mild anemia. PLAN: We will continue the patient on current medications. We could discharge the patient home to follow up with me in about a week's time. We will consider dilatation as an outpatient when the pneumonia settles. ROLY Soo Wilkerson M.D. / [id number] CC: Consultation Report [address] [place]. [address] NAME: JOSEPH CHO : 46 STATUS : ADM IN [facility]#: [id number] AGE: 66 ADM/REG DATE : 03/25/17 MR#: [id number] REPORT SERV DATE: 03/30/17 DICTATED BY: SOO WILKERSON DATE: 03/29/17 REPORT STATUS : Draft TRANSCRIBED BY: JOSIANE DATE: 03/29/17 Tuan Palmer MD
--- NOTE | ~2017-03-25 | HP ---
History And Physical [id number] [place]. [address] NAME: JOSEPH CHO : 48 STATUS : ADM IN [facility]#: [id number] AGE: 66 ADM/REG DATE : 03/25/17 MR#: [id number] REPORT SERV DATE: 03/25/17 DICTATED BY: JENNY HUMPHREYS DATE: 03/25/17 REPORT STATUS : Draft TRANSCRIBED BY: MODL DATE: 03/25/17 DATE OF ADMISSION: 03/25/2017 CHIEF COMPLAINT: Shortness of breath. HISTORY OF PRESENT ILLNESS: Obtained from the patient as well as the patient's family present at bedside and the emergency room documents. Also, prior medical records available to us were thoroughly reviewed. According to the information available, the patient is a pleasant 66-year-old white woman with history of COPD, prior history of breast cancer, who actually was admitted under Hospitalist Service from 03/02/2017, until 03/13/2017, in [facility] due to shortness of breath, pneumonia, and acute hypoxemic respiratory failure. The patient was discharged home and as per the patient's family since the discharge, she was starting to experience increasing shortness of breath initially at night and progressively worse with minimal exertion. She started having generalized weakness and coughing mostly dry. She denies any fever or chills until the day of admission, today when she started having chills similar with her previous symptoms that prompted her ER visit on 03/02/2017. The patient was not on oxygen at home. She was able to be weaned off completely from her oxygen supplementation during her previous admission. Upon arrival of EMS, the patient was noticed to be hypoxemic with an oxygen saturation 89% on room air. Systolic blood pressure 94/47. Received 3 L of oxygen with oxygen saturation up to 93%. Upon further investigation in the emergency room, the patient was noticed to have a new left lower lobe infiltrate and elevated white cell count of 20,400. The patient had continued to remain hypotensive requiring several boluses of fluids, while in the emergency room presently, blood pressure 110 systolic after the second liter of normal saline. Because of the above presentation and findings, the patient was referred to the Hospitalist Service for further management and evaluation. PAST MEDICAL HISTORY: Significant for recent prolonged admission in [facility] on the Hospitalist Service for acute hypoxemic respiratory failure with right-sided pneumonia multilobar and bilateral pleural effusion, improved at the time of discharge, history of hypertension, history of breast cancer left side treated with surgery and chemotherapy; history of asthma/COPD, apparently as the patient used to smoke in the past; history of cognitive impairment/dementia; history of GERD; history of chronic constipation; history of chronic pain syndrome with significant chronic back pain after multiple back surgeries; history of depression and anxiety; and history of urinary incontinence. PAST SURGICAL HISTORY: Significant for hysterectomy, lumbar spine surgery x2, lumbar spinal cord stimulator replaced and removed 6 years ago; incisional hernia repair with mesh; nasal surgery; bilateral foot surgery; history of left mastectomy with subsequent left breast reconstruction; history of cervical spine surgery in 2012, back surgeon Dr. Eden; history of prior Port-A-Cath and removal of the Port-A-Cath. ALLERGIES: TO MORPHINE; DILAUDID; SPORANOX; THE PATIENT LISTED OXYCODONE BUT TAKES OXYCODONE AT HOME. HOME MEDICATIONS LIST: According to the list provided History And Physical [address] [address] NAME: JOSEPH CHO MISTY : 46 STATUS : ADM IN [facility]#: [id number] AGE: 66 ADM/REG DATE : 03/25/17 MR#: [id number] REPORT SERV DATE: 03/25/17 DICTATED BY: JENNY HUMPHREYS DATE: 03/25/17 REPORT STATUS : Draft TRANSCRIBED BY: JOSIANE DATE: 03/25/17 1. The patient is supposed to take Norvasc 5 mg p.o. daily. 2. Vitamin C 1000 mg p.o. daily. 3. Biotene b.i.d. with t.i.d. and 5 mg [id number]-dwfosrn 1 daily. 4. Celebrex 200 mg p.o. b.i.d. 5. Vitamin D 2000 units p.o. daily. 6. Vitamin B12 of 2500 mcg sublingual daily. 7. Flexeril 10 mg p.o. t.i.d. p.r.n. muscle spasm. 8. Aricept 23 mg p.o. at bedtime. 9. Nexium 40 mg p.o. daily. 10.Neurontin 600 mg p.o. q.a.m. and 1200 mg p.o. at bedtime. 11.Linzess 145 mcg p.o. daily p.r.n. constipation. 12.Magnesium oxide, Mag-Ox 250 mg p.o. b.i.d. 13.Lopressor 25 mg p.o. b.i.d. 14.Multiple vitamins one tablet p.o. daily. 15.Ditropan XL 15 mg p.o. b.i.d. 16.Oxycodone 10 mg p.o. t.i.d. 17.Zantac 300 mg p.o. daily. 18.Trazodone 100 mg p.o. at bedtime. 19.Effexor XR 150 mg p.o. daily. SOCIAL HISTORY: The patient is . Lives with family. Denies tobacco abuse but she used to smoke in the past. She quit in , amassing roughly 60 pack year of smoking history. Denies alcohol abuse. Denies illicit recreational drug abuse. The patient is a Jehovah Witness. FAMILY HISTORY: COPD and hypertension. REVIEW OF SYSTEMS: As per H and P, otherwise negative in all review of systems. Please note, that the comprehensive review of system was obtained and pertinent positives were including in the H and P. PHYSICAL EXAMINATION: GENERAL: Pleasant, cooperative, pale, ill-appearing. VITAL SIGNS: Upon arrival in the emergency room, blood pressure 94/47, pulse 73, respiratory rate 22, temperature 99.2, oxygen saturation 89% in room air up to 93% on 3 L by nasal cannula. HEENT: Pupils equal, round, and reactive to light. Extraocular movements intact. Throat, mild erythema. No exudate. No signs of tenderness. Atraumatic and normocephalic. NECK: Supple. No JVD. No bruits. No thyromegaly. No lymph nodes. LUNGS: Bilateral air entry with scattered rhonchi over the left lung field. No significant wheezing noticed. HEART: Positive S1, S2. Regular rate and rhythm. Positive soft mitral regurgitation murmur at the apex. PMI not displaced by palpation. ABDOMEN: Positive bowel sounds. Soft, obese, nontender, no guarding, no hepatosplenomegaly. EXTREMITIES: Decreased range of motion. Osteoarthritic changes. No clubbing, no cyanosis, History And Physical [address] [place]. [address] NAME: JOSEPH CHO: 46 STATUS : ADM IN PAT#: [id number] AGE: 66 ADM/REG DATE : 03/25/17 MR#: [id number] REPORT SERV DATE: 03/25/17 DICTATED BY: JENNY HUMPHREYS DATE: 03/25/17 REPORT STATUS : Draft TRANSCRIBED BY: MODL DATE: 03/25/17 no edema. No calf tenderness. +2 pulses. NEUROLOGIC: Alert and oriented x3, grossly nonfocal. Cranial nerves 2 through 12 grossly intact. Motor strength 5/5 symmetrical bilateral. Deep tendon reflexes 2/2 symmetrical bilateral. The patient is pleasant, but very anxious with mild cognitive impairment and mild loss of recent memory. BACK: With decreased range of motion. No focal or localized tenderness. No CVA tenderness. SKIN: No bruits. No rash. No laceration. SIGNIFICANT LABORATORY DATA: Chest x-ray (personal reading) showed left lower lobe infiltrate. BNP 133.7. Lactate level 1.3. White cell count 20.4, hemoglobin 12.2, and platelet count 246. INR 1. ABG done in room air showed pH 7.45/PaCO2 of 30, PaO2 of 55 (FiO2 is 21%). Sodium 137, potassium 4.3, chloride 106, bicarb 28, BUN 14, creatinine 0.86, glucose 109, calcium 9.1, and magnesium 2.1. Liver function tests, albumin 3.3 and total bilirubin 1.4, otherwise liver function tests within normal limits. Troponin I is 0.04 which is within normal limits. Urinalysis not available. EKG (personal reading) showed normal sinus rhythm 72 beats per minute. Left anterior hemiblock. Left ventricular hypertrophy. No acute ST elevation. ASSESSMENT AND PLAN AND PROBLEM LIST: The patient is a pleasant 66-year-old white woman, admitted with sepsis, hypotension, and pneumonia after being discharged on 03/12/2017, from the hospital. IMPRESSION: 1. Sepsis/severe sepsis with hypotension. Criteria present and documented in the chart including elevated white cell count including respiratory rate ill-appearing, left lower lobe pneumonia/infiltrate. 2. Pulmonary. a. Acute hypoxemic respiratory failure. b. Left lower lobe pneumonia and healthcare associated pneumonia likely bacterial. c. COPD exacerbation/asthma. For all the above, the patient has been placed in IMCU, intermediate medical care unit with aggressive IV hydration and hemodynamic monitoring. Started on IV antibiotic as per healthcare-associated pneumonia protocol with cefepime and vancomycin. Consider adding Flagyl if the suspicion for aspiration. Provide bronchodilator therapy oxygen supplementation to keep oxygen saturation around 93% and symptomatic treatment with Flonase nasal spray, Mucinex DM. Consider Pulmonology consultation. 3. Hypotension with prior history of hypertension. We are going to hold prior medications, Norvasc and Lopressor. Provide adequate IV hydration. Continue to monitor. 4. Depression and anxiety and panic attacks. Continue the patient's medications. Provide emotional support. 5. Chronic pain syndrome with severe chronic back pain. We are going to continue the patient's home medications, specialty mattress. 6. GI problem. a. GERD without esophagitis by history. History And Physical [address] [address] NAME: JOSEPH CHO : 46 STATUS : ADM IN [facility]#: [id number] AGE: 66 ADM/REG DATE : 03/25/17 MR#: [id number] REPORT SERV DATE: 03/25/17 DICTATED BY: JENNY HUMPHREYS DATE: 03/25/17 REPORT STATUS : Draft TRANSCRIBED BY: JOSIANE DATE: 03/25/17 b. History of chronic constipation. c. History of ulcerative colitis with prior biologic immunosuppressive therapy. d. For all the above, we are going to continue the patient's PPI and Nexium. We are going to continue Linzess p.r.n. e. Cognitive impairment, mild. We are going to continue the patient's Aricept. f. Urinary incontinence, overactive bladder. Check urinalysis. Continue the patient's Ditropan XL. g. History of left breast cancer, status post prior surgery and chemotherapy. PROGNOSIS: Moderate for this admission. Discussed with patient and patient's family. Questions were answered in full. Please note that more than 40 plus minutes of critical care spent time directly taking care of the patient's medical condition during admission process in the emergency room. Please note, the patient is a full code at this moment as discussed with the patient and family at bedside. Please note also the written H and P and written orders and instructions. RF/JOSIANE Jenny Humphreys M.D. / [id number] CC: Tuan Nicholson MD
--- NOTE | ~2017-03-25 | CN ---
Consultation Report [facility] [address] [place]. [address] NAME: JOSEPH CHO : 46 STATUS : ADM IN PAT#: [id number] AGE: 66 ADM/REG DATE : 03/25/17 MR#: [id number] REPORT SERV DATE: 03/28/17 DICTATED BY: ERMELINDA HODGES DATE: 03/27/17 REPORT STATUS : Draft TRANSCRIBED BY: MODL DATE: 03/27/17 PULMONARY CONSULTATION DATE OF CONSULTATION: 03/27/2017 REASON FOR CONSULTATION: Recurrent/worsening pneumonia. HISTORY OF PRESENT ILLNESS: Ms. Cho is a 66-year-old white female, former smoker with lifelong asthma and possible COPD though she has no prior PFTs, GERD, and environmental allergies, who was readmitted with a left lower lobe infiltrate 11 days after discharge from this hospital post treatment for right middle lobe and right lower lobe pneumonia. She states she "never quite got better" after discharge. She presented to the hospital two days ago secondary to marked increase in dyspnea as well as wheezing, chills, and malaise. She also noted significant generalized edema. Pulmonary was consulted secondary to increasing left lower lobe infiltrate and new right upper lobe infiltrate despite inpatient treatment with Maxipime and vancomycin. It is notable that her Maxipime was changed to Zosyn earlier today. The patient states she has not had any improvement since admission despite treatment with antibiotics, systemic and nebulized steroids, and bronchodilators. It is notable that as an outpatient, she has had worsening dysphagia and severe GERD with several previous esophageal dilatations. She states her symptoms have continued to get worse and have been significantly worse since she was discharged from the hospital. She had a swallow evaluation during her last hospitalization that was negative for aspiration. As noted above, she has lifelong asthma. She has baseline frequent wheezing, nasal congestion, and postnasal drip for the past several years. She states she was on rescue albuterol only as an outpatient. She has not yet established with an outpatient filter washer, but she did have an upcoming appointment in our office for later this month. She complains of hypersomnolence and frequent awakening from sleep. She has never had a sleep evaluation. She has not been on supplemental oxygen as an outpatient. PAST MEDICAL HISTORY: 1. Asthma as noted above - She states she has had lifelong asthma without maintenance medications. She does have frequent symptoms as described above. 2. Questionable COPD - She denies previous pulmonary function testing. 3. Former smoker. 4. Severe GERD with previous esophageal dilatation. 5. Hypertension. 6. Chronic back pain with previous cervical fusion and lumbar spine surgery. Consultation Report [facility] [address] [place]. [address] NAME: JOSEPH CHO : 46 STATUS : ADM IN PAT#: [id number] AGE: 66 ADM/REG DATE : 03/25/17 MR#: [id number] REPORT SERV DATE: 03/28/17 DICTATED BY: ERMELINDA HODGES DATE: 03/27/17 REPORT STATUS : Draft TRANSCRIBED BY: MODL DATE: 03/27/17 7. Hypertension. 8. Left breast cancer, status post mastectomy and chemotherapy. Has had left breast prosthesis placement. 9. Previous bilateral foot surgery. 10.Previous nasal surgery. 11.Implantation of spinal cord stimulator followed by complicated removal. 12.Port-A-Cath placement followed by removal. 13.Urinary incontinence. 14.Dementia per chart. 15.Anxiety/depression. 16.Hysterectomy. 17.Incisional hernia repair. FAMILY HISTORY: Two daughters, granddaughter, and great granddaughter have asthma. Several siblings had asthma with airway obstruction. Smoker father from complications of COPD. SOCIAL HISTORY: Ms. Cho smoked up to two packs of cigarettes per day for approximately 40 years and quit 28 years ago. She denies ethanol intake, past/present drug use or chewing tobacco. 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 She is and has three children. MEDICATIONS: Outpatient and inpatient medications were reviewed and are as documented in the record. Per the patient and the available information, she was only on rescue albuterol for asthma as an outpatient. ALLERGIES: OXYCODONE, MORPHINE, ITRACONAZOLE, AND HYDROMORPHONE. REVIEW OF SYSTEMS: A 14-point system review was conducted and is remarkable for the symptoms as described in the history of present illness. Additionally, she complains of lower extremity edema and back pain. PHYSICAL EXAMINATION: VITAL SIGNS: Temperature 97.7 degrees, heart rate 16, blood pressure 147/67, respiratory rate 16, oxygen saturation 95% on supplemental oxygen at a flow rate of 2 L/minute. GENERAL: Pleasant, white female. Alert, oriented, no apparent distress. HEENT: Normocephalic. Atraumatic. There is no scleral icterus. The conjunctivae are clear. The oropharynx is clear. NECK: Supple. No lymphadenopathy was appreciated. LUNGS: Fair air movement. Good effort. The lungs are clear to auscultation bilaterally. HEART: Regular rate and rhythm. No ectopy was noted. ABDOMEN: Soft. Nontender. Nondistended. There are normal bowel sounds in all four quadrants. EXTREMITIES: There is trace pedal and pretibial edema bilaterally. There is no cyanosis or Consultation Report [id number] [facility] [place]. [address] NAME: JOSEPH CHO : 46 STATUS : ADM IN [facility]#: [id number] AGE: 66 ADM/REG DATE : 03/25/17 MR#: [id number] REPORT SERV DATE: 03/28/17 DICTATED BY: ERMELINDA HODGES DATE: 03/27/17 REPORT STATUS : Draft TRANSCRIBED BY: JOSIANE DATE: 03/27/17 clubbing. NEUROLOGICAL: A limited exam was found to be nonfocal. SKIN: No rashes were noted. LABORATORY RESULTS: Labs were reviewed and are as documented in the record. Notable labs include a white blood cell count of 12.5 which has decreased since admission. The procalcitonin on admission was 1.61 and 1.86 yesterday. The BNP on admission was 133.7 on admission and 257.5 yesterday. Arterial blood gas done on room air at admission revealed a pH of 7.45, pCO2 of 30, and pO2 of 55. IMAGING: The chest x-ray done today revealed increasing left lower lobe infiltrate and a new right upper lobe infiltrate as well as mild pulmonary edema and cardiomegaly. ASSESSMENT AND PLAN: Ms. Joseph Cho is a 66-year-old white female, former smoker, with asthma and possible chronic obstructive pulmonary disease, though she has never had prior pulmonary function testing. She was admitted with recurrent pneumonia and has had worsening infiltrates on chest x-ray. She does have a history of postnasal drip, nasal congestion, and severe GERD as well as significant dysphagia symptoms and possible aspiration despite a negative swallow study at her last visit. She also complains of hypersomnolence as noted above. Her worsening infiltrates may be related to dysphagia. Recommend rechecking a swallow study. With regard to her asthma, she has not been on maintenance medications as an outpatient. Recommend adding Singulair 10 mg once daily to her regimen here as an inpatient and discharging her with medication. She should continue on nebulized Brovana and budesonide while an inpatient. She should be discharged with a long-acting beta-agonist/inhaled corticosteroid medication for maintenance purposes. As noted, she has nasal congestion and postnasal drip. Recommend adding a nasal spray to her inpatient regimen. Improve pulmonary toilet as she is already on EzPAP. A flutter valve could be added to her regimen. She is on Zosyn and vancomycin for her infiltrates. We will check her sputum culture. Cefepime was changed to Zosyn today. We will follow her chest x-ray and procalcitonin prior to changing antibiotics again. As described, she does have a history of hypersomnolence. Recommend checking an overnight oximetry while she is an inpatient. Consultation Report [address] [place] [place]. [address] NAME: JOSEPH CHO : 46 STATUS : ADM IN [facility]#: [id number] AGE: 66 ADM/REG DATE : 03/25/17 MR#: [id number] REPORT SERV DATE: 03/28/17 DICTATED BY: ERMELINDA HODGES DATE: 03/27/17 REPORT STATUS : Draft TRANSCRIBED BY: JOSIANE DATE: 03/27/17 She has a followup appointment already scheduled in the pulmonary clinic. She should have outpatient PFTs when at baseline. Thank you very much for this consultation. Further recommendations to follow depending on the patient's response to therapy. PS/JOSIANE Ermelinda Hodges M.D. / [id number]
--- NOTE | ~2017-03-25 | CN ---
Consultation Report [facility] [address] [place]. [address] NAME: JOSEPH CHO : 46 STATUS : ADM IN [facility]#: [id number] AGE: 66 ADM/REG DATE : 03/25/17 MR#: [id number] REPORT SERV DATE: 03/28/17 DICTATED BY: GALINDO VEGAS III DATE: 03/28/17 REPORT STATUS : Draft TRANSCRIBED BY: MODNeri DATE: 03/28/17 CONSULTATION DATE OF CONSULTATION: 03/28/2017 HISTORY OF PRESENT ILLNESS: Mrs. Joseph Cho is a 66-year-old white female from [place], [place] referred for evaluation of chest pain. The patient has a history of palpitations treated with metoprolol. The patient stated that she underwent a myocardial perfusion scan approximately two years prior to this admission. According to the patient, myocardial perfusion imaging was normal. The patient was recently hospitalized at [facility] for pneumonia. The patient did well until the day of admission. At that time, the patient was admitted to [facility] with sepsis, hypoxemic respiratory failure, and pneumonia. The patient did well until 03/27/2017, at which time she notes the onset of dull substernal chest pains without radiation. The patient's chest pains have lasted up to 20 minutes in duration. The patient's chest pains have been accompanied by dyspnea and diaphoresis. The patient denied any associated nausea or vomiting. The patient's chest pains have been exacerbated by deep inspiration and aerosol treatments. The patient denied relation to exertion, emotional upset, positional change, and oral intake. The patient's chest pains have been reliably relieved by sublingual nitroglycerin. The patient denied relief with antacids. The patient denied trying a heating pad. The patient has no history of migraine headaches or symptoms suggestive of Raynaud phenomenon. The patient has noted an increase in the frequency, duration, and intensity of her chest pains. The patient was referred for cardiovascular evaluation. The patient complained of dyspnea on exertion, 2-3 pillow orthopnea, paroxysmal nocturnal dyspnea, nocturia, and bilateral pedal edema. The patient has a history of exertional syncope. The patient denied sacral edema. The patient has no history of rheumatic fever or cardiac murmur. The patient's documented coronary artery disease risk factors include obesity and hyperlipoproteinemia. PAST MEDICAL HISTORY: 1. Obesity. 2. Hyperlipoproteinemia. 3. Chronic obstructive pulmonary disease. 4. Chronic anxiety. 5. Depression. 6. Gastroesophageal reflux. 7. History of left breast cancer. 8. Chronic back pain. 9. Right knee arthritis. OPERATIVE PROCEDURES: 1. Status post lumbar spine surgery, 2 occasions. 2. Status post implantation and subsequent removal of a spinal cord stimulator. Consultation Report [facility] [place] [address] [place]. [address] NAME: JOSEPH CHO : 46 STATUS : ADM IN PAT#: [id number] AGE: 66 ADM/REG DATE : 03/25/17 MR#: [id number] REPORT SERV DATE: 03/28/17 DICTATED BY: GALINDO VEGAS III DATE: 03/28/17 REPORT STATUS : Draft TRANSCRIBED BY: JOSIANE DATE: 03/28/17 3. Status post cervical spine fusion. 4. Status post bilateral foot surgery. 5. Status post rhinoplasty. 6. Status post both eyes cataract extractions with intra-ocular lens implants. 7. Status post vaginal hysterectomy. 8. Abdominal incisional herniorrhaphy. 9. Status post hemorrhoidectomy. 10.Status post left breast mastectomy. 11.Status post left breast reconstruction surgery. ALLERGIES: 1. MORPHINE SULFATE. 2. HYDROMORPHONE. 3. SPORANOX. MEDICATIONS: 1. Ascorbic acid 1000 mg p.o. daily. 2. Arformoterol inhaler b.i.d. 3. Budesonide inhaler b.i.d. 4. Bumetanide 1 mg IV q.8 hours. 5. Cyanocobalamin 2500 mcg p.o. daily. 6. Cholecalciferol 2000 units p.o. daily. 7. Docosanol 10% five times daily. 8. Donepezil 20 mg p.o. at bedtime. 9. Enoxaparin 40 mg subcu at bedtime. 10.Famotidine 40 mg p.o. at bedtime. 11.Fluticasone propionate daily. 12.Gabapentin 600 mg p.o. q.a.m. and 1200 mg p.o. at bedtime. 13.Guaifenesin 1200 mg p.o. b.i.d. 14.Ipratropium bromide/albuterol aerosol q.4 hours. 15.Magnesium oxide 200 mg p.o. b.i.d. 16.Montelukast 10 mg p.o. daily. 17.Metoprolol 25 mg p.o. b.i.d. 18.Nitroglycerin q.6 hours. 19.Oxybutynin XL 15 mg p.o. b.i.d. 20.Pantoprazole 40 mg p.o. daily. 21.Zosyn 3.375 g IV q.8 hours. 22.Potassium chloride 20 mEq p.o. q.8 hours. 23.Trazodone 100 mg p.o. at bedtime. 24.Vancomycin 1 g IV q.12 hours. 25.Venlafaxine XR 150 mg p.o. daily. 26.Prednisone 20 mg p.o. daily. FAMILY HISTORY: Positive for hypertension, seizures, cancer, diabetes mellitus, kidney disease, liver disease, arthritis, and mental illness. Negative for myocardial infarction, Consultation Report [address] [address] NAME: JOSEPH CHO : 46 STATUS : ADM IN [facility]#: [id number] AGE: 66 ADM/REG DATE : 03/25/17 MR#: [id number] REPORT SERV DATE: 03/28/17 DICTATED BY: GALINDO VEGAS III DATE: 03/28/17 REPORT STATUS : Draft TRANSCRIBED BY: JOSIANE DATE: 03/28/17 stroke, and anemia. SOCIAL HISTORY: The patient discontinued cigarette smoking approximately 28 years prior to this admission. The patient has a remote history of alcohol use. PHYSICAL EXAMINATION: GENERAL: Physical examination demonstrate an alert, older white female, in no acute distress. VITAL SIGNS: Demonstrated a temperature of 98.1 orally, respiratory rate of 18 breaths per minute, and a blood pressure of 139/72 mmHg with a heart rate of 72 beats per minute. SKIN: Warm and dry. There were multiple well-healed surgical scars. NECK: Supple and nontender. There was decreased range of motion. There was no appreciable lymphadenopathy or thyromegaly. There was no jugular venous distention at 90 degrees. There were no carotid bruits. BACK: Examination of the back demonstrated no spinal or costovertebral angle tenderness. CHEST: Examination of the chest demonstrated bilateral coarse inspiratory crackles extending one-half the way up the posterior lung sawyer. There were no rhonchi, wheezes, or pleural rubs. There was symmetrical expansion of the chest. There was no use of the accessary muscles respiration. CARDIAC: Cardiac examination demonstrated a nonpalpable apical impulse. There was a regular rhythm and rate. There was no appreciable murmur, rub, gallop, or mid systolic click. There were no thrills or heaves. There was no hepatojugular reflux. ABDOMEN: Examination of the abdomen demonstrated that it was obese, soft, and protuberant. There was no appreciable hepatosplenomegaly or masses. Bowel sounds were intact. There were no abdominal or femoral bruits. EXTREMITIES: Examination of the extremities demonstrated that they were symmetrical. There was decreased range of motion. There was no cyanosis or clubbing. There was 1+ pitting bilateral pedal edema. Pulses were 2+ and equal at the radial and dorsalis pedis arteries. The right posterior tibial pulse was 2+ and the left posterior tibial pulse was nonpalpable. A supine resting 12-lead electrocardiogram performed on the day of consultation demonstrated sinus rhythm at a rate of 73 beats per minute. There were widespread nonspecific ST-segment and T-wave changes. Serum laboratory studies remarkable for a troponin I level of 0.07, creatinine of 0.66, and B-type natriuretic peptide level of 545.2 pg/mL. ASSESSMENT: Mrs. Joseph Cho is a 66-year-old white female with two other risk factors for coronary atherosclerotic disease (i.e. obesity, hyperlipoproteinemia) and a history of palpitations treated with metoprolol; who presents with progressive atypical chest pains and minimally elevated troponin I levels. I doubt the patient has sustained a non-ST segment elevation myocardial infarction. I would recommend an intravenous regadenoson myocardial perfusion scan. It has been a pleasure participating in the care of your patient. Consultation Report [address] [place]. [address] NAME: JOSEPH CHO : 46 STATUS : ADM IN [facility]#: [id number] AGE: 66 ADM/REG DATE : 03/25/17 MR#: [id number] REPORT SERV DATE: 03/28/17 DICTATED BY: GALINDO VEGAS III DATE: 03/28/17 REPORT STATUS : Draft TRANSCRIBED BY: JOSIANE DATE: 03/28/17 /MODL Galindo Vegas III, M.D., [facility], [facility] [place] / [id number] CC: Tuan Palmer MD Calvin Bell, M.D.
--- NOTE | ~2017-03-25 | PUL ---
[facility] [address] [place]. [address] NAME: JOSEPH CHO : 46 STATUS : ADM IN [facility]#: [id number] AGE: 66 ADM/REG DATE : 03/25/17 MR#: [id number] REPORT SERV DATE: 03/28/17 DICTATED BY: ERMELINDA HODGES DATE: 03/28/17 REPORT STATUS : Draft TRANSCRIBED BY: MODL DATE: 03/28/17 PULMONARY FUNCTION TEST OVERNIGHT OXIMETRY REPORT Start date of testin03/27/2017. End date of testin03/28/2017. COMMENTS: Testing conducted with the patient breathing in room air. RESULTS: Total valid sampling time 6 hours 43 minutes and 38 seconds. Total time with an oxygen saturation less than 88%, 33 minutes and 44 seconds. Oxygen desaturation index 1.5. IMPRESSION: There was significant desaturation during this study conducted while the patient was breathing in room air. Recommend supplemental oxygen at a flow rate of a minimum of 2 L/minute with sleep. PS/JOSIANE Ermelinda Hodges M.D. / [id number] CC: Tuan Palmer MD
--- NOTE | ~2017-03-25 | DS ---
Discharge Summary [facility] [address] [place]. [address] NAME: JOSEPH CHO : 46 STATUS : DIS IN PAT#: [id number] AGE: 66 ADM/REG DATE : 03/25/17 MR#: [id number] REPORT SERV DATE: 04/04/17 DICTATED BY: NINA MONROY DATE: 03/31/17 REPORT STATUS : Draft TRANSCRIBED BY: MODL DATE: 03/31/17 ADMISSION DATE: 03/25/2017 DISCHARGE DATE: 03/31/2017 DISCHARGE DIAGNOSES: 1. Sepsis with hypotension. 2. Multilobar pneumonia, healthcare associated. 3. Acute on chronic hypoxemic respiratory failure. 4. Acute exacerbation of chronic obstructive pulmonary disease. 5. Volume overload with normal ejection fraction associated with resuscitation. 6. Chest pain with low risk vasodilator stress test. 7. Nocturnal hypoxemia. 8. Exertional hypoxemia. 9. Chronic pain syndrome. 10.Oropharyngeal dysphagia. Mild oral and vallecular residue which clears with second swallow. 11.Cervical dysphagia. Outpatient followup with Dr. Ca planned. 12.Gastroesophageal reflux disease with history of strictures and dilatation. 13.Chronic constipation with history of ulcerative colitis. 14.Cognitive impairment, improved on Aricept. 15.Depression. 16.Anxiety. 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 18.History of arrhythmia. 19.Lucent lesion involving the posterior vertebral body and pedicle on the left at T11 measuring 12 x 27 mm with a sharp sclerotic margin, likely to represent a benign lesion such as a hemangioma or cyst. Typical hemangioma at the T6 level. Consider nuclear medicine bone scan (findings noted on previous hospitalizations, CTA chest 03/02/2017). 20.B12 deficiency treated. 21.Vitamin D deficiency, treated. 22.Recurrent herpes simplex, labialis treated. OPERATIONS AND PROCEDURES: None. PRESENT ILLNESS: This is a 66-year-old white female, who was triaged in the emergency room on 03/25/2017, at 1515 hours with shortness of breath and weakness. Admission vital signs; blood pressure 94/47, temp 99.2, pulse 73, respirations 22, and O2 saturation 89% on room air. After evaluation in the emergency room, she was referred to the Hospitalist Service for admission. She was seen by Dr. Jenny Loredo and admitted as described on admission history and physical examination. Additional history included a hospitalization here 03/02/2017 to 03/12/2017. She was discharged by Dr. Xie with principal diagnosis of acute right-sided pneumonia with pleural effusion and acute hypoxemic respiratory failure. Discharge Summary [facility] [place]. [address] NAME: JOSEPH CHO : 46 STATUS : DIS IN PAT#: [id number] AGE: 66 ADM/REG DATE : 03/25/17 MR#: [id number] REPORT SERV DATE: 04/04/17 DICTATED BY: NINA MONROY DATE: 03/31/17 REPORT STATUS : Draft TRANSCRIBED BY: JOSIANE DATE: 03/31/17 At home, she began to experience increasing shortness of breath initially at night and then progressively worse with minimal exertion through the day. She developed generalized weakness. Her symptoms progressed, and she presented to the emergency room and was admitted. ADDITIONAL HISTORY: Per Dr. Loredo. PHYSICAL EXAMINATION: Per Dr. Loredo. ADMISSION LABORATORY: Per Dr. Loredo. HOSPITAL COURSE: She was admitted by Dr. Loredo with: 1. Sepsis/severe sepsis with hypotension. 2. Acute hypoxemic respiratory failure. 3. Pneumonia. 4. COPD exacerbation. 5. All occurring in the setting of the above-mentioned comorbidities. On admission, cultures were obtained. She was started on broad-spectrum antimicrobial therapy. Her home medications were adjusted. She was given crystalloid volume resuscitation. Pulmonary consultation was obtained, and she was seen by Dr. Talbot. Her hospitalist care was by Dr. Walsh on 03/26/2017, Dr. Goins on 03/27/2017, and the undersigned on 03/28/2017, 03/29/2017, 03/30/2017, and 03/31/2017. She received 7 days of broad-spectrum antimicrobial therapy with Zosyn and vancomycin. Her admission procalcitonin was 1.61, increased to 1.86 on the , and was 0.05 on the . Her white blood cell count was 20.4 on the th and 8 on the . Streptococcal urinary antigen and Legionella urinary antigens were negative. Blood cultures obtained on admission were no growth. A sputum culture could not be obtained. Radiographically, her admission chest x-ray showed left basilar infiltrate and minimal right basilar atelectasis or infiltrate. A followup chest x-ray on 03/28/2017 showed persistent infiltrate with some perihilar edema. Clinically, there was a slow but consistent improvement in her presenting symptoms such that by the time of discharge, she was not dyspneic on low flow O2. She had no cough for sputum. She was eating and ambulatory. Because of her recurrent pneumonia, a modified barium swallow was done. She had mild oral and vallecular residue which cleared with a second swallow. Speech therapy recommended meds whole in pudding, [id number] diet, chopped meats with gravy, thin liquids, and aspiration precautions. Discharge Summary [facility] [address] [place]. [address] NAME: JOSEPH CHO : 46 STATUS : DIS IN PAT#: [id number] AGE: 66 ADM/REG DATE : 03/25/17 MR#: [id number] REPORT SERV DATE: 04/04/17 DICTATED BY: NINA MONROY DATE: 03/31/17 REPORT STATUS : Draft TRANSCRIBED BY: JOSIANE DATE: 03/31/17 She had documented nocturnal hypoxemia testing on 03/27/[address] Talbot recommended supplemental oxygen of flow rate minimum of 2 L/minute with sleep. In addition, the day prior to discharge, she had O2 desaturation from 91% at rest, 87% walking on room air, and she was therefore thought to be a candidate for home O2 with activity. She had some complaints of cervical dysphagia. GI consultation was obtained with her editor newspaper, Dr. Ca. He thought this was esophageal dyskinesia and also thought that her gabapentin might be contributing. He suggested her gabapentin be tapered if possible by Pain Management and that she begin Norvasc with outpatient followup. On 03/28/2017, she complained of chest pain. It had an ischemic cardiac component. A troponin on admission had been 0.04. Troponins on the were 0.07, 0.07, and 0.06. Cardiology consultation was obtained with her real time operator, Dr. Ospina, who referred the patient to Dr. Vegas. Dr. Vegas suggested IV regadenoson myocardial perfusion scan which was done on 03/29/2017. Imaging demonstrated no ischemia. This was thought to be a low risk vasodilator stress test. Gratefully, her chest pain resolved and no further evaluation was thought to be indicated at this time. By 03/31/2017, it was felt she had achieved a level of clinical stability and improvement where she could be safely discharged home after having completed her seventh day of antimicrobial therapy. She will follow up with Pulmonology, Dr. Suarez; Cardiology, Dr. Ospina; and GI, Dr. Ca, in addition, to her primary care physician in [place], Dr. Torres. She has a Pain Management visit scheduled in 04/2017. Her activity at home will be as tolerated. She will follow diet as described above. She will have home O2 at 2 L/minute for activity and at night. DISCHARGE MEDICATIONS: Pending outpatient followup. Norvasc 5 mg daily, vitamin C [id number] mg daily, vitamin B12 at 2500 mcg daily, vitamin D at 2000 units daily, Aricept 20 mg daily, Abreva as needed, Zantac 300 mg daily, Neurontin 600 mg every morning and 1200 mg at bedtime, Linzess 145 mcg daily a.m. as needed, magnesium oxide 250 mg twice daily, Singulair 10 mg daily, multivitamin daily, Lopressor 25 mg twice daily, Ditropan XL 15 mg twice daily, Nexium 40 mg daily, trazodone 100 mg daily, Effexor XR 150 mg daily, oxycodone 10 mg three times daily, Celebrex 200 mg twice daily as needed, Flexeril 10 mg three times daily as needed, biotin cap 5 mg daily, ProAir two puffs every four hours as needed, and Dulera 200/5 two puffs twice daily. Discharge time greater than 30 minutes. DICTATED BY: Nina Monroy M.D. DD/JOSIANE Discharge Summary [address] [address] NAME: JOSEPH CHO : 46 STATUS : DIS IN PAT#: [id number] AGE: 66 ADM/REG DATE : 03/25/17 MR#: [id number] REPORT SERV DATE: 04/04/17 DICTATED BY: NINA MONROY DATE: 03/31/17 REPORT STATUS : Draft TRANSCRIBED BY: JOSIANE DATE: 03/31/17 Nina Monroy M.D. / [id number] CC: Tuan Palmer MD Radian Florea, M.D. Pamela Sud, M.D. Calvin Bell, M.D. Subhash Virani, M.D. Jay Philippose, M.D. Leonard Hays III, M.D., [facility], [facility] Tuan Schuler MD F. Lee Hamilton, M.D.
[2017-03-25 16:03] LABS: BASOPHILS 0.2 %; BASOPHILS ABSOLUTE 0.04 10/3/uL (0.0-0.16); EOSINOPHILS 0.1 %; EOSINOPHILS ABSOLUTE 0.03 10/3/uL (0.0-0.53); HEMOGLOBIN 12.2 g/dL (12.0-16.0); IMMATURE GRANULOCYTES 0.3 %; IMMATURE GRANULOCYTES ABSOLUTE 0.06 10/3/uL (0.0-0.11); LYMPHOCYTES 3.5 %; LYMPHOCYTES ABSOLUTE 0.71 10/3/uL (0.67-4.30); MEAN CORPUS HGB CONC 31.6 g/dL (32.0-36.0); MEAN CORPUSCULAR HEMOGLOB 29.4 pg (26.0-34.0); MEAN PLATELET VOLUME 10.2 fL (9.2-13.0); MONOCYTES 4.9 %; NEUTROPHILS ABSOLUTE 18.58 10/3/uL (2.02-8.40); PLATELET COUNT 236 10/3/uL (150-400); RBC DISTRIBUTION WIDTH 14.1 % (12.0-16.0); RED CELL COUNT 4.15 10/6/uL (4.0-5.6)
[2017-03-25 16:04] LABS: BE (BASE EXCESS) -2.2 MEQ/L (0 +/- 2.5); CARBOXYHEMOGLOBIN 1.6 % (0-3); HCO3 (ACTUAL BICARBONATE) 20.7 MEQ/L (23-27); INSTRUMENT SERIAL # 8087; METHEMOGLOBIN 0.3 % (0-3); O2 CONTENT 15.9 VOL% (18-24); PCO2 (CO2 TENSION) 30 MMHG (35-45); PO2 (O2 TENSION) 55 MMHG (79-93); SAMPLE Arterial; pH 7.45 (7.37-7.43)
[2017-03-25 16:05] LABS: ALLENS TEST Pos
[2017-03-25 16:07] LABS: ER CBC TAT 0 Hrs 10 Mins; HEMATOCRIT 38.6 % (36.0-48.0); WHITE BLOOD CELLS 20.4 10/3/uL (4.5-10.5)
[2017-03-25 16:08] LABS: MANUAL DIFF NO %
[2017-03-25 16:14] LABS: PARTIAL THROMBO TIME 27.8 SEC (22.5-37.2); PROTIME (NOT ORD) 13.4 SEC (12.0-14.5)
[2017-03-25 16:19] LABS: BUN (BLOOD UREA NITROGEN) 14 MG/DL (6-23); CALCIUM, SERUM 9.1 MG/DL (8.5-10.4); CHEST PAIN PROFILE TAT 0 Hrs 22 Mins; CHLORIDE, SERUM 106 MMOL/L (96-112); CO2 (CARBON DIOXIDE) 28 MMOL/L (24-34); CREATININE 0.86 MG/DL (0.55-1.02); GFR AFRICAN AMERICAN 80 ML/MIN (>=60); GFR NON AFRICAN AMERICAN 69 ML/MIN (>=60); GLUCOSE, SERUM 109 MG/DL (60-99); POTASSIUM, SERUM 4.3 MMOL/L (3.5-5.3); SODIUM, SERUM 137 MMOL/L (135-148); TROPONIN I 0.04 NG/ML (<0.05)
[~2017-03-25 16:26] MED LIST changes: +ARICEPT10 PO; +DITRO5 PO; +EFFEXOR XR150 MG PO; +FLEX PO; +HARD NAILS PO; +LINZESS 145 M145 MCG PO; +LOP25 PO; +MAG-DELAY PO; +MULTIVIT/MIN PO; +MVI PO; +MYCOLOG II CREA15 GM TOP; +NEUR600 PO; +NIZORAL SHAMPOO TOP; +NORV5 PO; +OXYCOD PO; +P10; +PROAIRRESP INH; +TRAZ50 PO; +VITAMIN B PO; +VITAMIN C PO; +VITAMIN D31000 UNIT PO; +ZYRTEC ALLGY10 MG PO
[2017-03-25] MEDS ORDERED: DITROPAN XL15 MG PO (16:50)
[2017-03-25] MEDS ORDERED: NEXIUM40 PO (16:50)
[2017-03-25] MEDS ORDERED: OXYCOD PO (16:50)
[2017-03-25] MEDS ORDERED: NEUR600 PO ×2 (16:51)
[2017-03-25] MEDS ORDERED: EFFEXOR XR150 MG PO (16:51)
[2017-03-25] MEDS ORDERED: CELEBREX2 PO (16:51)
[2017-03-25] MEDS ORDERED: MULTIVITAMI1 PO (16:52)
[2017-03-25] MEDS ORDERED: VITAMIN B-122500 MCG SL (16:52)
[2017-03-25] MEDS ORDERED: VITAMIN D2000 UNIT PO (16:52)
[2017-03-25] MEDS ORDERED: VITC500 PO (16:53)
[2017-03-25] MEDS ORDERED: MERIBIN5 MG PO (16:53)
[2017-03-25] MEDS ORDERED: FLEX PO (16:53)
[2017-03-25] MEDS ORDERED: LINZESS 145 M145 MCG PO (16:54)
[2017-03-25] MEDS ORDERED: LOP25 PO (16:55)
[2017-03-25] MEDS ORDERED: ARICEPT23 MG PO (16:56)
[2017-03-25] MEDS ORDERED: NORV5 PO (16:56)
[2017-03-25] MEDS ORDERED: MAG OXIDE250 MG PO (16:56)
[2017-03-25] MEDS ORDERED: ZANTAC300 MG PO (16:57)
[2017-03-25] MEDS ORDERED: TRAZ100 PO (16:57)
[2017-03-25 18:33] LABS: ALBUMIN 3.3 G/DL (3.5-5.0); ALKALINE PHOSPHATASE 80 U/L (45-117); DIRECT BILIRUBIN 0.2 MG/DL (0.0-0.4); INDIRECT BILIRUBIN(NOT ORDER) 1.2 MG/DL (0.1-0.9); SGOT(AST) 15 U/L (5-40); SGPT(ALT) 25 U/L (5-65); TOTAL BILIRUBIN 1.4 MG/DL (0-1.2); TOTAL PROTEIN 6.4 G/DL (6.0-8.5)
[2017-03-25 18:48] LABS: PROCALCITONIN 1.61 ng/mL (<0.5)
[2017-03-26 05:22] LABS: BASOPHILS 0.2 %; BASOPHILS ABSOLUTE 0.03 10/3/uL (0.0-0.16); EOSINOPHILS 0 %; HEMATOCRIT 36.5 % (36.0-48.0); HEMOGLOBIN 11.6 g/dL (12.0-16.0); IMMATURE GRANULOCYTES 0.2 %; IMMATURE GRANULOCYTES ABSOLUTE 0.04 10/3/uL (0.0-0.11); LYMPHOCYTES 3.5 %; LYMPHOCYTES ABSOLUTE 0.65 10/3/uL (0.67-4.30); MEAN CORPUS HGB CONC 31.8 g/dL (32.0-36.0); MEAN CORPUSCULAR HEMOGLOB 29.6 pg (26.0-34.0); MEAN CORPUSCULAR VOLUME 93.1 fL (80-100); MEAN PLATELET VOLUME 10.5 fL (9.2-13.0); MONOCYTES 0.5 %; NEUTROPHILS 95.6 %; NEUTROPHILS ABSOLUTE 17.49 10/3/uL (2.02-8.40); PLATELET COUNT 200 10/3/uL (150-400); RBC DISTRIBUTION WIDTH 14.2 % (12.0-16.0); RED CELL COUNT 3.92 10/6/uL (4.0-5.6); WHITE BLOOD CELLS 18.3 10/3/uL (4.5-10.5)
[2017-03-26 05:28] LABS: MANUAL DIFF NO %
[2017-03-26 05:41] LABS: CPK 13 U/L (0-200); TROPONIN I 0.03 NG/ML (<0.05)
[2017-03-26 05:49] LABS: CK-MB 0.6 NG/ML
[2017-03-26 06:12] LABS: PROCALCITONIN 1.86 ng/mL (<0.5)
[2017-03-27 05:02] LABS: BASOPHILS 0 %; EOSINOPHILS 0 %; HEMATOCRIT 33.2 % (36.0-48.0); HEMOGLOBIN 10.7 g/dL (12.0-16.0); IMMATURE GRANULOCYTES 0.2 %; IMMATURE GRANULOCYTES ABSOLUTE 0.02 10/3/uL (0.0-0.11); LYMPHOCYTES 5.4 %; LYMPHOCYTES ABSOLUTE 0.68 10/3/uL (0.67-4.30); MEAN CORPUS HGB CONC 32.2 g/dL (32.0-36.0); MEAN CORPUSCULAR HEMOGLOB 29.7 pg (26.0-34.0); MEAN CORPUSCULAR VOLUME 92.2 fL (80-100); MEAN PLATELET VOLUME 10.4 fL (9.2-13.0); MONOCYTES 1.9 %; MONOCYTES ABSOLUTE 0.24 10/3/uL (0.21-1.20); NEUTROPHILS 92.5 %; NEUTROPHILS ABSOLUTE 11.56 10/3/uL (2.02-8.40); PLATELET COUNT 180 10/3/uL (150-400); RBC DISTRIBUTION WIDTH 14.1 % (12.0-16.0); WHITE BLOOD CELLS 12.5 10/3/uL (4.5-10.5)
[2017-03-27 05:03] LABS: MANUAL DIFF NO %
[2017-03-27 05:23] LABS: ALBUMIN 2.5 G/DL (3.5-5.0); BUN (BLOOD UREA NITROGEN) 15 MG/DL (6-23); CHLORIDE, SERUM 114 MMOL/L (96-112); CO2 (CARBON DIOXIDE) 21 MMOL/L (24-34); CREATININE 0.66 MG/DL (0.55-1.02); GFR AFRICAN AMERICAN 105 ML/MIN (>=60); GFR NON AFRICAN AMERICAN 91 ML/MIN (>=60); GLUCOSE, SERUM 177 MG/DL (60-99); SODIUM, SERUM 143 MMOL/L (135-148)
[2017-03-28 06:25] LABS: BASOPHILS 0.1 %; BASOPHILS ABSOLUTE 0.01 10/3/uL (0.0-0.16); EOSINOPHILS 0 %; HEMATOCRIT 34.3 % (36.0-48.0); HEMOGLOBIN 10.9 g/dL (12.0-16.0); IMMATURE GRANULOCYTES 0.3 %; IMMATURE GRANULOCYTES ABSOLUTE 0.05 10/3/uL (0.0-0.11); LYMPHOCYTES 9.6 %; LYMPHOCYTES ABSOLUTE 1.38 10/3/uL (0.67-4.30); MANUAL DIFF NO %; MEAN CORPUS HGB CONC 31.8 g/dL (32.0-36.0); MEAN CORPUSCULAR HEMOGLOB 29.5 pg (26.0-34.0); MEAN PLATELET VOLUME 10.6 fL (9.2-13.0); MONOCYTES 5.9 %; MONOCYTES ABSOLUTE 0.84 10/3/uL (0.21-1.20); NEUTROPHILS 84.1 %; NEUTROPHILS ABSOLUTE 12.03 10/3/uL (2.02-8.40); PLATELET COUNT 194 10/3/uL (150-400); RBC DISTRIBUTION WIDTH 14.3 % (12.0-16.0); RED CELL COUNT 3.69 10/6/uL (4.0-5.6); WHITE BLOOD CELLS 14.3 10/3/uL (4.5-10.5)
[2017-03-28 06:50] LABS: A/G RATIO 0.9 (0.7-1.9); ALBUMIN 2.5 G/DL (3.5-5.0); CALCIUM, SERUM 8.7 MG/DL (8.5-10.4); CHLORIDE, SERUM 114 MMOL/L (96-112); CREATININE 0.66 MG/DL (0.55-1.02); GFR AFRICAN AMERICAN 105 ML/MIN (>=60); GFR NON AFRICAN AMERICAN 91 ML/MIN (>=60); GLOBULIN 2.9 G/DL (2.5-4.1); PHOSPHORUS, SERUM 1.9 MG/DL (2.5-4.5); POTASSIUM, SERUM 3.8 MMOL/L (3.5-5.3); SGOT(AST) 7 U/L (5-40); SGPT(ALT) 15 U/L (5-65); SODIUM, SERUM 146 MMOL/L (135-148); TOTAL PROTEIN 5.4 G/DL (6.0-8.5)
[2017-03-28 06:52] LABS: ALKALINE PHOSPHATASE 63 U/L (45-117); BUN (BLOOD UREA NITROGEN) 19 MG/DL (6-23); CO2 (CARBON DIOXIDE) 26 MMOL/L (24-34); GLUCOSE, SERUM 105 MG/DL (60-99); TOTAL BILIRUBIN 0.6 MG/DL (0-1.2)
[2017-03-28 07:06] LABS: PROCALCITONIN 0.59 ng/mL (<0.5)
[2017-03-28 10:08] LABS: TROPONIN I 0.07 NG/ML (<0.05)
[2017-03-29 04:36] LABS: BASOPHILS 0.2 %; BASOPHILS ABSOLUTE 0.02 10/3/uL (0.0-0.16); EOSINOPHILS 0.6 %; EOSINOPHILS ABSOLUTE 0.05 10/3/uL (0.0-0.53); HEMATOCRIT 33.9 % (36.0-48.0); IMMATURE GRANULOCYTES 0.2 %; IMMATURE GRANULOCYTES ABSOLUTE 0.02 10/3/uL (0.0-0.11); LYMPHOCYTES 23.1 %; LYMPHOCYTES ABSOLUTE 2.01 10/3/uL (0.67-4.30); MEAN CORPUS HGB CONC 32.4 g/dL (32.0-36.0); MEAN CORPUSCULAR HEMOGLOB 29.6 pg (26.0-34.0); MEAN CORPUSCULAR VOLUME 91.1 fL (80-100); MEAN PLATELET VOLUME 10.4 fL (9.2-13.0); MONOCYTES 8.9 %; MONOCYTES ABSOLUTE 0.77 10/3/uL (0.21-1.20); NEUTROPHILS ABSOLUTE 5.82 10/3/uL (2.02-8.40); PLATELET COUNT 199 10/3/uL (150-400); RBC DISTRIBUTION WIDTH 14.2 % (12.0-16.0); RED CELL COUNT 3.72 10/6/uL (4.0-5.6); WHITE BLOOD CELLS 8.7 10/3/uL (4.5-10.5)
[2017-03-29 04:37] LABS: MANUAL DIFF NO %
[2017-03-29 04:48] LABS: BUN (BLOOD UREA NITROGEN) 14 MG/DL (6-23); CALCIUM, SERUM 8.5 MG/DL (8.5-10.4); CHLORIDE, SERUM 106 MMOL/L (96-112); CO2 (CARBON DIOXIDE) 31 MMOL/L (24-34); GFR AFRICAN AMERICAN 103 ML/MIN (>=60); GFR NON AFRICAN AMERICAN 89 ML/MIN (>=60); GLUCOSE, SERUM 126 MG/DL (60-99); POTASSIUM, SERUM 3.4 MMOL/L (3.5-5.3); SODIUM, SERUM 143 MMOL/L (135-148); TROPONIN I 0.05 NG/ML (<0.05)
[2017-03-30 06:40] LABS: BASOPHILS 0.1 %; BASOPHILS ABSOLUTE 0.01 10/3/uL (0.0-0.16); EOSINOPHILS 1.3 %; HEMATOCRIT 34.4 % (36.0-48.0); HEMOGLOBIN 11.1 g/dL (12.0-16.0); IMMATURE GRANULOCYTES 0.4 %; IMMATURE GRANULOCYTES ABSOLUTE 0.03 10/3/uL (0.0-0.11); LYMPHOCYTES 30.6 %; LYMPHOCYTES ABSOLUTE 2.43 10/3/uL (0.67-4.30); MEAN CORPUS HGB CONC 32.3 g/dL (32.0-36.0); MEAN CORPUSCULAR HEMOGLOB 29.3 pg (26.0-34.0); MEAN CORPUSCULAR VOLUME 90.8 fL (80-100); MONOCYTES 8.3 %; MONOCYTES ABSOLUTE 0.66 10/3/uL (0.21-1.20); NEUTROPHILS 59.3 %; NEUTROPHILS ABSOLUTE 4.72 10/3/uL (2.02-8.40); PLATELET COUNT 200 10/3/uL (150-400); RBC DISTRIBUTION WIDTH 14.1 % (12.0-16.0); RED CELL COUNT 3.79 10/6/uL (4.0-5.6)
[2017-03-30 06:48] LABS: MANUAL DIFF NO %
[2017-03-30 06:55] LABS: BUN (BLOOD UREA NITROGEN) 14 MG/DL (6-23); CALCIUM, SERUM 8.7 MG/DL (8.5-10.4); CHLORIDE, SERUM 104 MMOL/L (96-112); CO2 (CARBON DIOXIDE) 32 MMOL/L (24-34); CREATININE 0.69 MG/DL (0.55-1.02); GFR AFRICAN AMERICAN 104 ML/MIN (>=60); GFR NON AFRICAN AMERICAN 89 ML/MIN (>=60); GLUCOSE, SERUM 123 MG/DL (60-99); POTASSIUM, SERUM 3.5 MMOL/L (3.5-5.3); SODIUM, SERUM 143 MMOL/L (135-148)
[2017-03-30 13:23] LABS: VANCOMYCIN TROUGH 14.3 MCG/ML (10.0-20.0)
[2017-03-30 14:13] LABS: PROCALCITONIN 0.05 ng/mL (<0.5)
[2017-03-31 07:17] LABS: BUN (BLOOD UREA NITROGEN) 15 MG/DL (6-23); CHLORIDE, SERUM 105 MMOL/L (96-112); CO2 (CARBON DIOXIDE) 33 MMOL/L (24-34); CREATININE 0.75 MG/DL (0.55-1.02); GFR AFRICAN AMERICAN 95 ML/MIN (>=60); GFR NON AFRICAN AMERICAN 82 ML/MIN (>=60); SODIUM, SERUM 140 MMOL/L (135-148)
[2017-03-31 07:18] LABS: GLUCOSE, SERUM 81 MG/DL (60-99); POTASSIUM, SERUM 4.3 MMOL/L (3.5-5.3)
[2017-03-31] MEDS ORDERED: ABREVA EX (10:10)
[2017-03-31] MEDS ORDERED: SINGULAIR1 PO (10:15)
[2017-03-31] MEDS ORDERED: DULERA 200 MCG/13 GM INH (10:19)
[2017-03-31] MEDS ORDERED: PROAIR HFA INH (10:20)
== END 2017-03-31 16:50 | disposition home health service (06) | DRG 871 ==
LOC: ER 16:26 → IMCU 18:21 → 6NO 03-27 20:18
PROVIDERS: Emergency Medicine; Internal Medicine
DX: A41.9 Sepsis, unspecified organism (principal); J18.9 Pneumonia, unspecified organism; J96.21 Acute and chronic respiratory failure with hypoxia; J44.0 Chronic obstructive pulmonary disease with (acute) lower respiratory infection; J44.1 Chronic obstructive pulmonary disease with (acute) exacerbation; R13.12 Dysphagia, oropharyngeal phase; E87.70 Fluid overload, unspecified; R65.20 Severe sepsis without septic shock; K21.9 Gastro-esophageal reflux disease without esophagitis; I10 Essential (primary) hypertension; F41.9 Anxiety disorder, unspecified; F03.90 Unspecified dementia, unspecified severity, without behavioral disturbance, psychotic disturbance, mood disturbance, and anxiety; K59.00 Constipation, unspecified; G89.4 Chronic pain syndrome; M54.9 Dorsalgia, unspecified; F32.9 Major depressive disorder, single episode, unspecified; F41.0 Panic disorder [episodic paroxysmal anxiety]; R32 Unspecified urinary incontinence; N32.81 Overactive bladder; E66.9 Obesity, unspecified; E78.5 Hyperlipidemia, unspecified; M17.11 Unilateral primary osteoarthritis, right knee; Y95 Nosocomial condition; R07.9 Chest pain, unspecified; K22.4 Dyskinesia of esophagus; D18.09 Hemangioma of other sites; Z82.49 Family history of ischemic heart disease and other diseases of the circulatory system; Z87.891 Personal history of nicotine dependence; Z77.090 Contact with and (suspected) exposure to asbestos; Z98.1 Arthrodesis status; Z83.3 Family history of diabetes mellitus; Z92.21 Personal history of antineoplastic chemotherapy; Z87.01 Personal history of pneumonia (recurrent); Z85.3 Personal history of malignant neoplasm of breast; Z88.5 Allergy status to narcotic agent; Z90.12 Acquired absence of left breast and nipple; Z90.710 Acquired absence of both cervix and uterus; Z68.33 Body mass index [BMI] 33.0-33.9, adult
CPT/HCPCS: 36600; 71010; 74230; 78452; 80048; 80053; 80069; 80076; 80202; 82272; 82533; 82550; 82553; 82805; 83605; 83735; 83880; 84100; 84145; 84484; 85025; 85610; 85730; 87040; 87449; 87641; 92611-GN; 93005; 93017; 94640; 94762; 96365; 97161-GP; 99291; A9270-GY; A9502; G8978-CI-GP; G8979-CI-GP; G8980-CI-GP; G8996-CJ-GN; G8997-CJ-GN; G8998-CJ-GN; J0692; J1720; J2543; J2785; J2920; J2930; J3370